=== PATIENT | female | born 1985 | race African-American/Black ===

== ENCOUNTER 2018-01-02 20:44 | Emergency (ER) | payer OTHER ==
--- NOTE | 2018-01-02 20:49 | PDOC ---
History of Present Illness - General History Source: Patient Exam Limitations: No Limitations - History of Present Illness Initial Comments: 01/02/18 22:31 The patient is a 32 year old female accompanied with her with a significant past medical history of PE, asthma, bariatric surgery, and currently who presents to the emergency department for evaluation of dysuria. The patient reports a 2 day history of worsening dysuria. Pt states the burning upon urination is getting worse. Denies any change to diet. The patient denies chest pain,, abdominal pain, back pain, headache, and shortness of breath. Denies fever, chills, nausea, vomiting, diarrhea, constipation, and hematuria. Allergies: Moxifloxacin HCl, vancomycin, levofloxacin, oxycodone. Social History: No reported alcohol, cigarette, or drug use. 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 ORIENTAL RUG REPAIRER: Dr. Lawson <Toya Nicole - Last Filed: 01/02/18 22:33> <Deloris Rojo - Last Filed: 01/03/18 05:22> - General Chief Complaint: Urinary Problem Stated Complaint: URINARY BURNING & 17 WKS Past History <Toya Nicole - Last Filed: 01/02/18 22:33> - Past Medical History Anemia: No Asthma: Yes Cancer: No Cardiac Disorders: No CVA: No COPD: No CHF: No Dementia: No Diabetes: No GI Disorders: Yes (Bariatric surgery, vomting) Disorders: No HTN: No Hypercholesterolemia: No Liver Disease: No Psychiatric Problems: Yes (Ages 9 or 10 went with mother to see a therapist.) Seizures: No Thyroid Disease: No - Surgical History Abdominal Surgery: Yes (Jun 13, 2014 - Bariatric- Gastric sleeve) Appendectomy: No Cardiac Surgery: No Cholecystectomy: Yes Gastric Stapling: Yes Lung Surgery: Yes (substernal mass, 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) Neurologic Surgery: No Orthopedic Surgery: No - Suicide/Smoking/Psychosocial Hx Smoking Status: No Smoking History: Unknown if ever smoked Have you smoked in the past 12 months: No Number of Cigarettes Smoked Daily: 0 Cigars Per Day: 0 Hx Alcohol Use: Yes (denies current use) Drug/Substance Use Hx: No Substance Use Type: None Hx Substance Use Treatment: No <Deloris Rojo - Last Filed: 01/03/18 05:22> - Past Medical History Allergies/Adverse Reactions: Allergies Allergy/AdvReac Type Severity Reaction Status Date / Time moxifloxacin HCl Allergy Mild Verified 05/20/16 13:00 [From Avelox] vancomycin Allergy Unknown Verified 05/20/16 13:00 levofloxacin [From Levaquin] Allergy Verified 05/20/16 13:00 oxycodone Allergy Verified 05/20/16 13:00 Home Medications: Ambulatory Orders Enoxaparin Sodium [Lovenox] 110 mg SQ DAILY #30 amp 09/27/16 Cyanocobalamin Vit B-12 Inj. [Vitamin B12 Injection -] 1,000 mcg IJ WEEKLY #4 vial 03/13/17 Vit Calc,Iron,Folic [ Vitamins] 1 each PO DAILY #30 tablet Darunavir Ethanolate [Prezista -] 600 mg PO BID #60 tab 10/08/17 Ritonavir [Norvir -] 100 mg PO BID #60 tab 10/08/17 Potassium Chloride [K-Dur -] 20 meq PO DAILY #3 tablet.er 10/09/17 Abacavir Sulfate [Abacavir] 2 tab PO DAILY #60 tablet 11/05/17 Tenofovir Disoproxil Fumarate [Viread] 300 mg PO DAILY #30 tablet 11/05/17 Albuterol Sulfate Inhaler - [Ventolin Hfa Inhaler -] 1 - 2 inh PO Q6H PRN #1 inhaler 11/25/17 Nitrofurantoin Monohyd/M-Cryst [Macrobid -] 100 mg PO BID #14 capsule 01/02/18 Review of Systems - Review of Systems Able to Perform ROS?: Yes Comments:: GENERAL/CONSTITUTIONAL: No fever or chills. No weakness. HEAD, EYES, EARS, NOSE AND THROAT: No change in vision. No ear pain or discharge. No sore throat. CARDIOVASCULAR: No chest pain or shortness of breath. RESPIRATORY: No cough, wheezing, or hemoptysis. GASTROINTESTINAL: No nausea, vomiting, diarrhea or constipation. GENITOURINARY: (+)dysuria. No frequency, or change in urination. MUSCULOSKELETAL: No joint or muscle swelling or pain. No neck or back pain. SKIN: No rash NEUROLOGIC: No headache, vertigo, loss of consciousness, or change in strength/ sensation. ENDOCRINE: No increased thirst. No abnormal weight change. HEMATOLOGIC/LYMPHATIC: No anemia, easy bleeding, or history of blood clots. ALLERGIC/IMMUNOLOGIC: No hives or skin allergy. <Toya Nicole - Last Filed: 01/02/18 22:33> *Physical Exam - Vital Signs Last Vital Signs Temp Pulse Resp BP Pulse Ox 98.3 F 78 16 106/54 100 01/02/18 20:45 01/02/18 20:45 01/02/18 20:45 01/02/18 20:45 01/02/18 20:45 - Physical Exam Comments: GENERAL: Awake, alert, and fully oriented, in no acute distress HEAD: No signs of trauma EYES: PERRLA, EOMI, sclera anicteric, conjunctiva clear ENT: Auricles normal inspection, hearing grossly normal, nares patent, oropharynx clear without exudates. Moist mucosa NECK: Normal ROM, supple, no lymphadenopathy, JVD, or masses LUNGS: Breath sounds equal, clear to auscultation bilaterally. No wheezes, and no crackles HEART: Regular rate and rhythm, normal S1 and S2, no murmurs, rubs or gallops ABDOMEN: (+)Minimal suprapubic tenderness. Soft, nontender, normoactive bowel sounds. No guarding, no rebound. No masses EXTREMITIES: Normal range of motion, no edema. No clubbing or cyanosis. No cords, erythema, or tenderness NEUROLOGICAL: Cranial nerves II through XII grossly intact. Normal speech, normal gait SKIN: Warm, Dry, normal turgor, no rashes or lesions noted. <Toya Nicole - Last Filed: 01/02/18 22:33> ED Treatment Course - ADDITIONAL ORDERS Additional order review: Laboratory Results 01/02/18 21:04 Urine Color Yellow Urine Appearance Clear Urine pH 6.5 Ur Specific [place] 1.020 Urine Protein Trace Urine Glucose (UA) Negative Urine Ketones Negative Urine Blood Negative Urine Nitrite Negative Urine Bilirubin Negative Urine Urobilinogen 0.2 Ur Leukocyte Esterase 2+ H Urine RBC 0-2 Urine WBC >50 Ur Epithelial Cells Few Urine Bacteria Few - Medications Given in the ED: ED Medications Discontinued Medications Generic Name Dose Route Start Last Admin Trade Name Freq PRN Reason Stop Dose Admin Nitrofurantoin Macrocrystals 100 mg 01/02/18 21:30 01/02/18 21:38 Macrodantin - PO 100 mg ONCE WON Administration <Toya Nicole - Last Filed: 01/02/18 22:33> Medical Decision Making - Medical Decision Making 01/03/18 05:21 UA shows a UTI in ; pt will be treated with macrobid and asked to follow with her PMD Lulu. <Deloris Rojo - Last Filed: 01/03/18 05:22> *DC/Admit/Observation/Transfer - Attestations Scribe Attestion: Documentation prepared by Toya Nicole, acting as medical technologist prn for Deloris Rojo MD. <Toya Nicole - Last Filed: 01/02/18 22:33> - Discharge Dispostion Decision to Admit order: No <Deloris Rojo - Last Filed: 01/03/18 05:22> Diagnosis at time of Disposition: UTI (urinary tract infection) during - Discharge Dispostion Disposition: HOME Condition at time of disposition: Stable - Prescriptions Prescriptions: Nitrofurantoin Monohyd/M-Cryst [Macrobid -] 100 mg PO BID #14 capsule - Referrals Referrals: Moon Lawson DO [Primary Care Provider] - - Patient Instructions Printed Discharge Instructions: Urinary Tract Infection - Post Discharge Activity
[2018-01-02 20:50] VITALS: BP 106/54; PULSE 78; TEMP 98.3; BMI 29.4
[2018-01-02 21:10] LABS: PH,URINE 6.5 (4.5-8); URINE APPEARANCE Clear; URINE BILIRUBIN Negative (NEGATIVE); URINE COLOR Yellow; URINE GLUCOSE (UA) Negative (NEGATIVE); URINE KETONE Negative (NEGATIVE); URINE LEUK ESTERASE 2+ (NEGATIVE); URINE NITRITE Negative (NEGATIVE); URINE PROTEIN Trace (NEGATIVE); URINE UROBILINOGEN 0.2 (0.2-1.0)
[2018-01-02] MEDS ORDERED: NITROFURANTOIN MACROCRYSTAL 50 MG CAPSULE (FP) PO SCH (21:30)
[2018-01-02] MEDS ORDERED: NITROFURANTOIN MACROCRYSTAL 50 MG CAPSULE (FP) ONE (21:36)
[2018-01-02 21:39] LABS: EPI CELLS FEW /HPF; URINE RBC 0-2 /hpf (0-3); URINE WBC >50 (0-5)
[2018-01-02 21:40] LABS: URINE BACTERIA FEW /hpf (NEGATIVE)
== END 2018-01-02 21:51 | disposition home or self-care (01) ==
LOC: FER 20:44
DX: O26.892 Other specified pregnancy related conditions, second trimester (principal); Z3A.17 17 weeks gestation of pregnancy; N39.0 Urinary tract infection, site not specified; Z98.84 Bariatric surgery status; Z86.711 Personal history of pulmonary embolism; F99 Mental disorder, not otherwise specified; J45.909 Unspecified asthma, uncomplicated
CPT/HCPCS: 81003; 81015; 87086; 87186; 99282-25

== ENCOUNTER 2018-06-06 17:11 | Inpatient (IN) | payer OTHER ==
[2018-06-06] MEDS ORDERED: TUBERCULIN PPD 5 TU/0.1ML SYRINGE (IN PATIENT USE ONLY) ID ONE (17:30)
[2018-06-06 17:46] VITALS: BMI 33.4
[2018-06-06] MEDS ORDERED: OXYTOCIN 30 UNITS in 0.9% NS 30 UNIT/500 ML INFUS.BAG IVPB SCH (18:00)
[2018-06-06] MEDS ORDERED: DEXTROSE 5%-LACTATED RINGERS 1,000 ML IV SCH (18:15)
[2018-06-06] MEDS ORDERED: OXYTOCIN 30 UNITS in 0.9% NS 30 UNIT/500 ML INFUS.BAG IVPB ONE (18:33)
--- NOTE | 2018-06-06 18:50 | HP ---
Past Medical History - Admission Chief Complaint: Here for labor induction. History of Present Illness: 32 y/o P0 female with SIUP at 39.5 weeks gestation here for scheduled IOL. Pt with medical history significant for HIV - on antivirals and viral load as of 05/25/18 undetectable. Pt also with h/o pulmonary embolism prior to , has been on Lovenox throughout , last dose yesterday at 11am. Was attempted to switch to Heparin however patient had reaction/allergy so maintained on Lovenox per Hematology/MFM. Pt also with anemia, has recieved multiple IV iron infusions, last one last week. Cervix 2cm dilated in office. History Source: Patient, Medical Record Limitations to Obtaining History: No Limitations - Past Medical History Cardiovascular: No: HTN Pulmonary: Yes: Asthma. No: COPD Gastrointestinal: No: GERD Hepatobiliary: No: Hepatitis B, Hepatitis C ...: 1 ...Para: 0 ...Term: 0 ...: 0 ...Spon : 0 ...Induced : 0 ...Multiple Gestation: 0 ...EDC by [facility]: 06/08/18 Heme/Onc: Yes: Anemia Infectious Disease: No: HIV Psych: No: Anxiety, Bipolar, Depression Rheumatology: No: Lupus - Past Surgical History Hx Myomectomy: No Hx Transabdominal Cerclage: No Additional Surgical History: LEEP, Abdominoplasty - Smoking History Smoking history: Never smoked Have you smoked in the past 12 months: No Aproximately how many cigarettes per day: 0 - Alcohol/Substance Use Hx Alcohol Use: No - Social History Usual Living Arrangement: Yes: With Significant Other ADL: Independent History of Recent Travel: No Home Medications - Allergies Allergies/Adverse Reactions: Allergies Allergy/AdvReac Type Severity Reaction Status Date / Time ciprofloxacin [From Cipro] Allergy Intermediate Verified 06/06/18 18:08 heparin Allergy Mild Itching Verified 06/06/18 18:26 moxifloxacin HCl Allergy Mild Verified 06/06/18 18:08 [From Avelox] vancomycin Allergy Unknown Verified 06/06/18 18:08 levofloxacin [From Levaquin] Allergy Verified 06/06/18 18:08 raisin Allergy Intermediate Itching Uncoded 06/06/18 18:08 - Home Medications Home Medications: Ambulatory Orders Enoxaparin Sodium [Lovenox] 110 mg SQ DAILY #30 amp 09/27/16 Vit Calc,Iron,Folic [ Vitamins] 1 each PO DAILY #30 tablet Darunavir Ethanolate [Prezista -] 600 mg PO BID #60 tab 01/12/18 Ritonavir [Norvir -] 100 mg PO BID #60 tab 01/12/18 Tenofovir Disoproxil Fumarate [Viread] 300 mg PO DAILY #30 tablet 01/12/18 Albuterol 0.083% Nebulizer Opal [Ventolin 0.083% Nebulizer Soln -] 1 amp NEB PRN PRN 06/06/18 Dolutegravir Sodium [Tivicay] 50 mg PO BID 06/06/18 Esomeprazole Magnesium [Nexium 24Hr] 20 mg PO DAILY 06/06/18 Ferrous Sulfate [Feosol] 325 mg PO TID 06/06/18 Review of Systems - Review of Systems Constitutional: reports: No Symptoms Eyes: reports: No Symptoms HENT: reports: No Symptoms Neck: reports: No Symptoms Cardiovascular: reports: No Symptoms Respiratory: reports: No Symptoms Gastrointestinal: reports: No Symptoms Genitourinary: reports: No Symptoms Breasts: reports: No Symptoms Reported Musculoskeletal: reports: No Symptoms Integumentary: reports: No Symptoms Neurological: reports: No Symptoms Endocrine: reports: No Symptoms Hematology/Lymphatic: reports: No Symptoms Psychiatric: reports: No Symptoms Physical Exam - Maternity Vital Signs: Vital Signs Temperature 97.9 F 06/06/18 17:37 Pulse Rate 101 H 06/06/18 17:37 Respiratory Rate 20 06/06/18 17:37 Blood Pressure 109/79 06/06/18 17:37 O2 Sat by Pulse Oximetry (%) Constitutional: Yes: Well Nourished, No Distress, Calm Eyes: Yes: Conjunctiva Clear, EOM Intact HENT: Yes: Normocephalic Neck: Yes: Supple, Trachea Midline Cardiovascular: Yes: Regular Rate and Rhythm Lungs: Clear to auscultation Breast(s): Yes: WNL - Abdominal Exam/OB Fundal Height: 39 Number of Fetuses: Single Presentation: Vertex Contractions: Yes Regularity: Irregular Intensity: Mild Heart Rate (range): 155 Category: I Accelerations: Uniform Decelerations: None - Vaginal Exam/OB Vaginal Bleediing: No Dilatation (cm): 3 Effacement (%): 50 Presentation: Vertex/Position Station: -2 - Physical Exam Psychiatric: Yes: Alert, Oriented Hemorrhage Risk Assessment - Risk Factors Medium Risk Factors: Yes: None High Risk Factors: Yes: None Risk Score: 1 Risk Level: Medium Risk Problem List - Problems (1) History of pulmonary embolism Code(s): Z86.711 - PERSONAL HISTORY OF PULMONARY EMBOLISM (2) Asthma, mild intermittent Code(s): J45.20 - MILD INTERMITTENT ASTHMA, UNCOMPLICATED (3) HIV (human immunodeficiency virus) risk factors complicating Code(s): O09.899 - SUPERVISION OF OTHER HIGH RISK PREGNANCIES, UNSP TRIMESTER Qualifiers: Trimester: third trimester Qualified Code(s): O09.893 - Supervision of other high risk pregnancies, third trimester (4) Anemia affecting Code(s): O99.019 - ANEMIA COMPLICATING , UNSPECIFIED TRIMESTER Assessment/Plan Plan for induction of labor Lovenox held >24 hours HIV positive, viral load undetectable, will continue oral home medications, AZT not indicated per ACOG recommendations - will alert nursery to have preparations for baby Pitocin started GBS negative
[2018-06-06] MEDS ORDERED: ALBUTEROL SO4 0.083% IH SOL 2.5 MG/3 ML VIAL.NEB. NEB PRN (18:59)
[2018-06-06] MEDS ORDERED: ELECTROLYTE-148 SOLN 1,000 ML IV SCH (19:00)
[2018-06-06] MEDS ORDERED: PROMETHAZINE HCL 25 MG/1 ML VIAL IVPUSH ONE (19:00)
[2018-06-06] MEDS ORDERED: BUTORPHANOL TARTRATE 1 MG/ML VIAL IVPB ONE (19:00)
[2018-06-06 19:20] LABS: BASO % 0.3 % (0-2.0); EOS % 0.6 % (0-4.5); HEMATOCRIT 28.7 % (32.4-45.2); HEMOGLOBIN 9.7 GM/dL (10.7-15.3); LYMPH % 21.5 % (8-40); MCH 27.2 pg (25.7-33.7); MEAN CELL VOLUME 80.1 fl (80-96); MONO % 7.9 % (3.8-10.2); NEUT % 69.7 % (42.8-82.8); PLATELET COUNT 180 K/MM3 (134-434); RBC 3.58 M/mm3 (3.60-5.2); RDW 21.1 % (11.6-15.6); WHITE BLOOD COUNT 6.5 K/mm3 (4.0-10.0)
[2018-06-06 19:35] LABS: ANION GAP 10 MMOL/L (8-16); BLOOD UREA NITROGEN 9 mg/dL (7-18); CALCIUM 7.5 mg/dL (8.5-10.1); CHLORIDE 109 mmol/L (98-107); CO2 20 mmol/L (21-32); CREATININE 0.7 mg/dL (0.55-1.3); GLUCOSE,RANDOM 89 mg/dL (74-106); INR 0.92 (0.83-1.09); POTASSIUM 3.5 mmol/L (3.5-5.1); PROTHROMBIN TIME (PATIENT) 10.8 SEC (9.7-13.0); SODIUM 139 mmol/L (136-145)
[2018-06-06 19:38] LABS: ACTIVATED PTT 27.8 SECONDS (25.2-36.5)
[2018-06-06] MEDS ORDERED: FENTANYL/BUPIVACAINE/NS/PF - PCEA - 50 ML DISP.SYRIN EP ONE (21:17)
[2018-06-06] MEDS ORDERED: NALOXONE HCL 0.4 MG/ML VIAL IVPUSH PRN (21:18)
[2018-06-06] MEDS ORDERED: LIDO 2%/EPI 1:200000 PRESRVFRE (20 ML SDVIAL) ONE (21:28)
[2018-06-06] MEDS ORDERED: FENTANYL/BUPIVACAINE/NS/PF - PCEA - 50 ML DISP.SYRIN EP SCH (21:30)
--- NOTE | 2018-06-06 22:08 | PN ---
Ante-Partal Exam - Subjective Subjective: Pt s/p epidural, now is comfortable. Vital Signs: Vital Signs Temperature 97.9 F 06/06/18 17:37 Pulse Rate 69 06/06/18 21:00 Respiratory Rate 20 06/06/18 21:00 Blood Pressure 124/79 06/06/18 21:00 O2 Sat by Pulse Oximetry (%) Bleeding: Yes Bleeding Description: Mild Headache: No Visual changes: No Right upper quadrant pain: No - Contractions Contractions: Yes Regularity: Regular Intensity: Strong - Exam during Labor Heart Rate: 150 Variability: Moderate Category: I Monitor Accelerations: Present Monitor Decelerations: None Exam: Vaginal Dilatation (cm): 6 Effacement (%): 70 Amniotic Membrane Status: Ruptured (AROM for clear fluid at this exam) Amniotic Fluid: Clear Presentation: Vertex Station: -1 - Assessment/Plan Assessment/Plan: 32 y/o with SIUP at 39 weeks, IOL s/p AROM and epidural continue pitocin anticipate
[2018-06-06] MEDS: DOLUTEGRAVIR SODIUM 50 MG TABLET (NON-FORMULARY) PO SCH (22:14)
[2018-06-06] MEDS: DARUNAVIR ETHANOLATE 600 MG TAB PO SCH (22:14)
[2018-06-06] MEDS: RITONAVIR 100 MG TABLET PO SCH (22:15)
[2018-06-07] MEDS ORDERED: FENTANYL/BUPIVACAINE/NS/PF - PCEA - 50 ML DISP.SYRIN EP ONE (01:03)
[2018-06-07] MEDS ORDERED: LIDOCAINE HCL 1% PRESERVATIVE FREE - 30ML VIAL ONE (01:58)
[2018-06-07] MEDS ORDERED: OXYTOCIN 20 UNITS in 0.9% NS 20 UNIT/1,000 ML INFUS.BAG IV ONE (01:58)
--- NOTE | 2018-06-07 03:02 | PN ---
Delivery - Delivery Vaginal Delivery: No Problems Type of Anesthesia: Epidural Episiotomy/Laceration: 2nd degree EBL (cc): 250 Delivery, Single - Stages of Labor Date of Delivery: 06/07/18 Time of Delivery: 02:33 Date Placenta Delivered: 06/07/18 Time Placenta Delivered: :45 Placenta: Yes: Spontaneous - Condition of Gender: Male Position: Left, OA - 1 Minute Total Score: 9 5 Minutes Total Score: 9 - [place] Feeding Plan Initial Plan: Elected not to breastfeed exclusively throughout hospitalization Remarks - Remarks Remarks: Uncomplicated of baby boy from ROSE position across 2nd degree laceration Anterior shoulder (right) delivered with ease along with remainder of 3vc noted, clamped and cut baby recieved apgars 9/9 placenta delivered spontaneously and in tact 2nd degree laceration repaired wtih 2-0 vicryl and chromic sponge and needle count correct mom stable baby to well baby nursery
[2018-06-07] MEDS ORDERED: BISACODYL 10 MG SUPP.RECT RC PRN (03:06)
[2018-06-07] MEDS ORDERED: WITCH HAZEL 50% (TUCKS) 40 PAD/JAR PAD TP PRN (03:06)
[2018-06-07] MEDS ORDERED: BENZOCAINE 28 GM HEMORRHOIDAL OINTMENT TP PRN (03:06)
[2018-06-07] MEDS ORDERED: BENZOCAINE 20% 57 GM BOTTLE TP PRN (03:06)
[2018-06-07] MEDS ORDERED: IBUPROFEN 600 MG TABLET (FP) PO PRN (03:06)
[2018-06-07] MEDS ORDERED: OXYTOCIN 20 UNITS in 0.9% NS 20 UNIT/1,000 ML INFUS.BAG IV SCH (03:15)
[2018-06-07] MEDS: ACETAMINOPHEN 325 MG TABLET (FP) PO PRN ×3 (05:09→21:16)
[2018-06-07] MEDS: oxyCODONE HCL 5 MG TABLET PO PRN ×3 (07:29→21:18)
[2018-06-07] MEDS: FERROUS SO4 325 MG TABLET (FP) PO SCH ×4 (07:29→21:18)
[2018-06-07] MEDS: ENOXAPARIN NA (PORCINE) 40 MG/0.4 ML DISP.SYRIN SQ SCH (09:20)
[2018-06-07] MEDS: PRENATAL VITAMINS W/ FOLIC ACID TABLET (FP) PO SCH (09:20)
[2018-06-07] MEDS: RITONAVIR 100 MG TABLET PO SCH ×2 (09:21→21:19)
[2018-06-07] MEDS: TENOFOVIR DISOPROXIL FUMARATE 300 MG TABLET PO SCH (10:38)
[2018-06-07] MEDS: DOLUTEGRAVIR SODIUM 50 MG TABLET (NON-FORMULARY) PO SCH ×2 (10:39→21:19)
[2018-06-07] MEDS: DARUNAVIR ETHANOLATE 600 MG TAB PO SCH ×2 (10:39→21:19)
[2018-06-08] MEDS: ACETAMINOPHEN 325 MG TABLET (FP) PO PRN ×4 (01:58→23:51)
[2018-06-08] MEDS: oxyCODONE HCL 5 MG TABLET PO PRN ×3 (01:58→23:52)
[2018-06-08] MEDS: FERROUS SO4 325 MG TABLET (FP) PO SCH ×3 (06:36→22:30)
[2018-06-08 07:35] LABS: BASO % 0.2 % (0-2.0); HEMATOCRIT 26.3 % (32.4-45.2); HEMOGLOBIN 8.4 GM/dL (10.7-15.3); LYMPH % 19.6 % (8-40); MCH 26.1 pg (25.7-33.7); MCHC 31.9 g/dl (32.0-36.0); MEAN CELL VOLUME 81.9 fl (80-96); MEAN PLT VOLUME 8.4 fl (7.5-11.1); MONO % 6.6 % (3.8-10.2); NEUT % 72.6 % (42.8-82.8); PLATELET COUNT 131 K/MM3 (134-434); RBC 3.21 M/mm3 (3.60-5.2); WHITE BLOOD COUNT 9.1 K/mm3 (4.0-10.0)
[2018-06-08] MEDS: ENOXAPARIN NA (PORCINE) 40 MG/0.4 ML DISP.SYRIN SQ SCH (09:47)
[2018-06-08] MEDS: PRENATAL VITAMINS W/ FOLIC ACID TABLET (FP) PO SCH (09:48)
[2018-06-08] MEDS: RITONAVIR 100 MG TABLET PO SCH ×2 (09:48→22:30)
[2018-06-08] MEDS: DARUNAVIR ETHANOLATE 600 MG TAB PO SCH ×2 (09:49→22:30)
[2018-06-08] MEDS: DOLUTEGRAVIR SODIUM 50 MG TABLET (NON-FORMULARY) PO SCH ×2 (09:50→22:30)
[2018-06-08] MEDS: TENOFOVIR DISOPROXIL FUMARATE 300 MG TABLET PO SCH (09:51)
[2018-06-08] MEDS ORDERED: SENNOSIDES/DOCUSATE COMBO (SENNA PLUS) TABLET (UD) PO PRN (22:00)
[2018-06-09] MEDS: FERROUS SO4 325 MG TABLET (FP) PO SCH (06:45)
[2018-06-09 08:38] VITALS: BP 122/80; PULSE 89; TEMP 98.8
[2018-06-09] MEDS: PRENATAL VITAMINS W/ FOLIC ACID TABLET (FP) PO SCH (09:02)
[2018-06-09] MEDS: ENOXAPARIN NA (PORCINE) 40 MG/0.4 ML DISP.SYRIN SQ SCH (09:02)
[2018-06-09] MEDS: RITONAVIR 100 MG TABLET PO SCH (09:03)
[2018-06-09] MEDS: DARUNAVIR ETHANOLATE 600 MG TAB PO SCH (09:06)
[2018-06-09] MEDS: DOLUTEGRAVIR SODIUM 50 MG TABLET (NON-FORMULARY) PO SCH (09:09)
[2018-06-09] MEDS: TENOFOVIR DISOPROXIL FUMARATE 300 MG TABLET PO SCH (09:10)
--- NOTE | 2018-06-09 09:19 | DS ---
Physical Exam-REGISTERED NURSE NURSERY Vital Signs: Vital Signs Temperature 98.8 F 06/09/18 07:50 Pulse Rate 89 06/09/18 07:50 Respiratory Rate 20 06/09/18 07:50 Blood Pressure 122/80 06/09/18 07:50 O2 Sat by Pulse Oximetry (%) 100 06/07/18 03:45 Labs: CBC, BMP 06/08/18 06:15 06/06/18 19:00 Delivery - Delivery Vaginal Delivery: No Problems Type of Anesthesia: Epidural Episiotomy/Laceration: 2nd degree EBL (cc): 250 Delivery, Single - Stages of Labor Date 1st Stage Initiatied: 06/07/18 Time 1st Stage Initiated: 21:45 Date 2nd Stage Initiated: 06/07/18 Time 2nd Stage Initiated: 02:15 Date of Delivery: 06/07/18 Time of Delivery: 02:33 Time Placenta Delivered: 02:45 Placenta: Yes: Spontaneous - 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 of 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 Present: No Infant Gender: Male Weight: 6 lb 13 oz Position: Left, OA Total Hours ROM (Hrs/Mins): 4HOURS/45MIN - 1 Minute Total Score: 9 5 Minutes Total Score: 9 - Feeding Plan Initial Plan: Elected not to breastfeed exclusively throughout hospitalization Discharge Summary Reason For Visit: INDUCTION OF LABOR Current Active Problems Anemia affecting (Acute) HIV (human immunodeficiency virus) risk factors complicating (Acute) Condition: Good - Instructions Diet, Activity, Other Instructions: Physical activity Resume your normal everyday activity as tolerated no heavy lifting or exercise until seen by your surgeon. You may walk unlimited lin of and climb stairs. You may resume driving the car when you feel safe and comfortable behind the wheel. No sexual activity as instructed. Wound care If you have a bandage, leave it on, and keep dry for 48-72 hours. After that time discard the outer bandage. If they are tapes on the skin under the out of bandage leave them in place. They will peel off in the next 7 to 10 days. Do Not Peel them off. You may shower the day after surgery. If there are tapes present on the skin, you may shower over them. Diet There are no dietary restrictions. Eat healthy, high-fiber foods. Drink 6 to 8 glasses of liquid each day. This will assist in keeping your bowels are regular. Pain management You may take Tylenol or acetaminophen or Ibuprofen (for example, Motrin, Advil etc.) from my pain prescription medication is ordered should be taken as prescribed for moderate to severe pain. Call MD for any of the following: Severe pain not relieved by medication Fever of 101 or higher Excessive bleeding or drainage on dressing Inability to urinate Disposition: HOME - Home Medications Comprehensive Discharge Medication List: Ambulatory Orders Enoxaparin Sodium [Lovenox] 110 mg SQ DAILY #30 amp 09/27/16 Vit Calc,Iron,Folic [ Vitamins] 1 each PO DAILY #30 tablet Darunavir Ethanolate [Prezista -] 600 mg PO BID #60 tab 01/12/18 Ritonavir [Norvir -] 100 mg PO BID #60 tab 01/12/18 Tenofovir Disoproxil Fumarate [Viread] 300 mg PO DAILY #30 tablet 01/12/18 Albuterol 0.083% Nebulizer Opal [Ventolin 0.083% Nebulizer Soln -] 1 amp NEB PRN PRN 06/06/18 Dolutegravir Sodium [Tivicay] 50 mg PO BID 06/06/18 Esomeprazole Magnesium [Nexium 24Hr] 20 mg PO DAILY 06/06/18 Ferrous Sulfate [Feosol] 325 mg PO TID 06/06/18
--- NOTE | 2018-06-09 09:19 | PN ---
Post Progress Note Type of Delivery: Vital Signs: Vital Signs Temperature 98.8 F 06/09/18 07:50 Pulse Rate 89 06/09/18 07:50 Respiratory Rate 20 06/09/18 07:50 Blood Pressure 122/80 06/09/18 07:50 O2 Sat by Pulse Oximetry (%) 100 06/07/18 03:45 - Labs Labs: CBC WBC 9.1 K/mm3 (4.0-10.0) 06/08/18 06:15 RBC 3.21 M/mm3 (3.60-5.2) L 06/08/18 06:15 Hgb 8.4 GM/dL (10.7-15.3) L 06/08/18 06:15 Hct 26.3 % (32.4-45.2) L 06/08/18 06:15 MCV 81.9 fl (80-96) 06/08/18 06:15 MCH 26.1 pg (25.7-33.7) 06/08/18 06:15 MCHC 31.9 g/dl (32.0-36.0) L 06/08/18 06:15 RDW 23.0 % (11.6-15.6) H 06/08/18 06:15 Plt Count 131 K/MM3 (134-434) L D 06/08/18 06:15 MPV 8.4 fl (7.5-11.1) 06/08/18 06:15 Absolute Neuts (auto) 6.6 K/mm3 (1.5-8.0) 06/08/18 06:15 Neutrophils % 72.6 % (42.8-82.8) 06/08/18 06:15 Lymphocytes % 19.6 % (8-40) 06/08/18 06:15 Monocytes % 6.6 % (3.8-10.2) 06/08/18 06:15 Eosinophils % 1.0 % (0-4.5) 06/08/18 06:15 Basophils % 0.2 % (0-2.0) 06/08/18 06:15 Nucleated RBC % 0 % (0-0) 06/08/18 06:15 Problem List - Problems (1) History of pulmonary embolism Code(s): Z86.711 - PERSONAL HISTORY OF PULMONARY EMBOLISM (2) Asthma, mild intermittent Code(s): J45.20 - MILD INTERMITTENT ASTHMA, UNCOMPLICATED (3) HIV (human immunodeficiency virus) risk factors complicating Code(s): O09.899 - SUPERVISION OF OTHER HIGH RISK PREGNANCIES, UNSP TRIMESTER Qualifiers: Trimester: third trimester Qualified Code(s): O09.893 - Supervision of other high risk pregnancies, third trimester (4) Anemia affecting Code(s): O99.019 - ANEMIA COMPLICATING , UNSPECIFIED TRIMESTER
== END 2018-06-09 12:00 | disposition home or self-care (01) | DRG 560 ==
LOC: JLDR 17:11 → J3W 06-07 04:46
PROVIDERS: ADMIT Obstetrics & Gynecology; ATTEND Obstetrics & Gynecology
PROC: 10E0XZZ Delivery of Products of Conception, External Approach (ICD-10-PCS; principal; 2018-06-07)
PROC: 0KQM0ZZ Repair Perineum Muscle, Open Approach (ICD-10-PCS; 2018-06-07)
PROC: 0W8NXZZ Division of Female Perineum, External Approach (ICD-10-PCS; 2018-06-07)
PROC: 3E0334Z Introduction of Serum, Toxoid and Vaccine into Peripheral Vein, Percutaneous Approach (ICD-10-PCS; 2018-06-07)
DX: O70.1 Second degree perineal laceration during delivery (principal); O99.013 Anemia complicating pregnancy, third trimester; O98.713 Human immunodeficiency virus [HIV] disease complicating pregnancy, third trimester; Z21 Asymptomatic human immunodeficiency virus [HIV] infection status; O26.893 Other specified pregnancy related conditions, third trimester; Z29.13 Encounter for prophylactic Rho(D) immune globulin; Z3A.39 39 weeks gestation of pregnancy; J45.20 Mild intermittent asthma, uncomplicated; Z37.0 Single live birth
CPT/HCPCS: 36415; 59409; 80048; 85025; 85461; 85610; 85730; 86593; 86850; 86870; 86900; 86901; 86902; 86999

== ENCOUNTER 2019-04-24 20:07 | Emergency (ER) | payer OTHER ==
[2019-04-24 20:22] VITALS: BP 119/84; PULSE 90; TEMP 98.3; BMI 35.6
[2019-04-24] MEDS ORDERED: AZITHROMYCIN 500 MG TABLET PO ONE (20:31)
[2019-04-24] MEDS ORDERED: AZITHROMYCIN 500 MG TABLET ONE (20:33)
--- NOTE | 2019-04-24 20:36 | PDOC ---
Documentation entered by Olaf Hartley SCRIBE, acting as scribe for Hardeep Serrato MD. Hardeep Serrato MD: This documentation has been prepared by the Naeem rahman Aiswarya, SCRIBE, under my direction and personally reviewed by me in its entirety. I confirm that the documentation accurately reflects all work, treatment, procedures, and medical decision making performed by me. History of Present Illness - General Chief Complaint: Allergic Reaction Stated Complaint: ITCHING Time Seen by Provider: 04/24/19 20:22 History Source: Patient Exam Limitations: No Limitations - History of Present Illness Initial Comments: 04/24/19 20:29 Assessment and plan: This is a 33-year-old female who comes in complaining of itching post being started on Augmentin for a right otitis media. Patient is also tearful and complaining of pain in her right ear. On my exam patient does have an inflamed tympanic membrane of her right ear consistent with a right otitis media. Patient told to stop the Augmentin and take Benadryl Claritin or Alejandra for the itching Patient started on azithromycin Patient also given Percocet for the pain in the ear. Will continue 2 days of Percocet for her until the antibiotic kicks in Patient discharged home Past History - Past Medical History Allergies/Adverse Reactions: Allergies Allergy/AdvReac Type Severity Reaction Status Date / Time ciprofloxacin [From Cipro] Allergy Severe Verified 06/07/18 21:25 moxifloxacin HCl Allergy Severe Verified 06/07/18 21:25 [From Avelox] levofloxacin [From Levaquin] Allergy Intermediate Hives Verified 06/07/18 21:25 amoxicillin Allergy Mild Itching Verified 04/24/19 20:23 heparin Allergy Mild Itching Verified 06/06/18 18:26 vancomycin Allergy Unknown Swelling Verified 06/07/18 21:25 raisin Allergy Intermediate Itching Uncoded 06/06/18 18:08 Home Medications: Ambulatory Orders Albuterol 0.083% Nebulizer Opal [Ventolin 0.083% Nebulizer Soln -] 1 amp NEB PRN PRN 06/06/18 Etonogestrel [Nexplanon] 68 mg SQ ASDIR 09/18/18 Ritonavir [Norvir -] 100 mg PO BID #60 tab 09/18/18 Tenofovir Disoproxil Fumarate [Viread] 300 mg PO DAILY #30 tablet 09/18/18 Albuterol Sulfate Inhaler - [Ventolin HFA Inhaler -] 1 - 2 inh PO Q4H PRN #1 inhaler 12/29/18 Beclomethasone Dipropionate [Qvar] 1 puff IH BID #1 aer.w.adap 12/29/18 Guaifenesin Dm [Robitussin Dm -] 10 ml PO Q4H PRN #240 ml 12/29/18 Loratadine [Claritin -] 10 mg PO DAILY PRN #30 tablet 12/29/18 Mometasone Furoate 1 spray NS BID #1 spray.pump 12/29/18 Darunavir/Cob/Emtri/Tenof Alaf [Symtuza [id number] mg Tab] 1 each PO DAILY # 30 tablet 01/05/19 Dolutegravir Sodium [Tivicay] 50 mg PO BID #60 tablet 01/05/19 Omeprazole 20 mg PO DAILY PRN #30 capsule. 02/02/19 Azithromycin 250 mg PO DAILY #4 tablet 04/24/19 Azithromycin 250 mg PO DAILY #4 tablet 04/24/19 Oxycodone HCl/Acetaminophen [Percocet 5-325 mg Tablet] 1 tab PO Q4H #12 tablet MDD 6 04/24/19 Oxycodone HCl/Acetaminophen [Percocet 5-325 mg Tablet] 1 tab PO Q4H #6 tablet MDD 6 04/24/19 Anemia: No Asthma: No Cancer: No Cardiac Disorders: No CVA: No COPD: No CHF: No Dementia: No Diabetes: No GI Disorders: Yes (Bariatric surgery, vomting) Disorders: No HTN: No Hypercholesterolemia: No Liver Disease: No Psychiatric Problems: Yes (Ages 9 or 10 went with mother to see a therapist.) Seizures: No Thyroid Disease: No - Surgical History Abdominal Surgery: Yes (Jun 13, 2014 - Bariatric- Gastric sleeve) Appendectomy: No Cardiac Surgery: No Cholecystectomy: Yes Gastric Stapling: Yes Lung Surgery: Yes (substernal mass, 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) Neurologic Surgery: No Orthopedic Surgery: No - Psycho Social/Smoking Cessation Hx Smoking Status: No Smoking History: Never smoked Have you smoked in the past 12 months: No Number of Cigarettes Smoked Daily: 0 Cigars Per Day: 0 Hx Alcohol Use: No Drug/Substance Use Hx: No Substance Use Type: None Hx Substance Use Treatment: No *Physical Exam - Vital Signs Last Vital Signs Temp Pulse Resp BP Pulse Ox 98.3 F 90 18 119/84 99 04/24/19 20:10 04/24/19 20:10 04/24/19 20:10 04/24/19 20:10 04/24/19 20:10 Discharge - Discharge Information Problems reviewed: Yes Clinical Impression/Diagnosis: Right otitis media Qualifiers: Otitis media type: unspecified Qualified Code(s): H66.91 - Otitis media, unspecified, right ear Allergic reaction caused by a drug Qualifiers: Encounter type: initial encounter Qualified Code(s): T78.40XA - Allergy, unspecified, initial encounter Condition: Good Disposition: HOME - Additional Discharge Information Prescriptions: Azithromycin 250 mg PO DAILY #4 tablet Azithromycin 250 mg PO DAILY #4 tablet Oxycodone HCl/Acetaminophen [Percocet 5-325 mg Tablet] 1 tab PO Q4H #12 tablet MDD 6 Oxycodone HCl/Acetaminophen [Percocet 5-325 mg Tablet] 1 tab PO Q4H #6 tablet MDD 6 - Follow up/Referral Referrals: Moon Lawson DO [Primary Care Provider] - - Patient Discharge Instructions Additional Instructions: For the pain take Percocet 1 tablet as often as every 4 hours as needed I was able to send a prescription to [facility] on [facility] for a total of 6 tablets that should get you through tomorrow otherwise you will need to go to your other pharmacy and get additional tablets if you still need them. For the infection and stop the Augmentin and take azithromycin 1 tablet a day for the next 4 days. There is a prescription for azithromycin at both pharmacy so only fill one. For the itching you can take Benadryl or purchase some [id number] Claritin or Alejandra and take as directed. Return to the emergency department immediately with ANY new, persistent or worsening symptoms. Continue any medications as previously prescribed by your physician. You should follow up with your primary doctor as soon as possible regarding today's emergency department visit. . Please make sure your doctor reviews the results of your emergency evaluation. Thank you for coming to the Emergency Department today for your care. It was a pleasure to see you today. Please note that your evaluation is INCOMPLETE until you follow-up with your doctor. - Post Discharge Activity
== END 2019-04-24 20:50 | disposition home or self-care (01) ==
LOC: FER 20:07
DX: L29.8 Other pruritus (principal); T36.0X5A Adverse effect of penicillins, initial encounter; T36.1X5A Adverse effect of cephalosporins and other beta-lactam antibiotics, initial encounter; Y92.038 Other place in apartment as the place of occurrence of the external cause; H66.91 Otitis media, unspecified, right ear; Z88.0 Allergy status to penicillin; Z88.1 Allergy status to other antibiotic agents; Z88.2 Allergy status to sulfonamides; Z91.018 Allergy to other foods; Z86.59 Personal history of other mental and behavioral disorders; Z98.84 Bariatric surgery status; Z90.49 Acquired absence of other specified parts of digestive tract
CPT/HCPCS: 99282-25

== ENCOUNTER 2019-05-03 12:12 | Inpatient (IN) | payer OTHER ==
[~2019-05-03 12:12] MED LIST: DOXYCYCLINE MONOHYDRATE 25 MG/5 ML SUSPENSION PO SCH
--- NOTE | 2019-05-03 12:35 | PDOC ---
History of Present Illness - General Chief Complaint: Syncope/Near Syncope Stated Complaint: Syncope/Near Syncope Time Seen by Provider: 05/03/19 12:35 History Source: Patient Exam Limitations: No Limitations - History of Present Illness Initial Comments: Pt is a 33 yo F, with PMH of HIV (prior IVDU), asthma (not compliant with controller meds), GERD, prior PE (not compliant with AC), and anemia (required Fe and blood transfusions), who is presenting with complaints of worsening ear pain, and syncopal episode yesterday. Pt was seen at a [facility] 04/24, and was treated for R OM with augmentin. Pt developed itching, and was switched to zithromax (pt took 5 days) at [facility]. Pt states R ear pain has worsened and is now affecting L ear. 2 days ago she developed pain behind R ear, nausea/ vomiting, and loose stools, and "passed out" while walking to the bathroom (hit her head, unknown downtime). Pt had incontinence during this episode. Pt with Tmax this morning (101 oral), last took Tylenol at 7 am. Pt denies any headache , neck stiffness, vision changes, syncope, chest pain, palpitations, SOB, abdominal pain, urinary symptoms, constipation, or leg swelling. Allergies: NKDA PCP: Kori Enamorado ([facility]) GI: Dr. Prater (endoscopy scheduled next week). Social: Pt denies any current cigarette, alcohol, or drug use. Prior IVDU. Pt denies any recent travel or sick contacts. Surgical: no relevant history. Family: no relevant history. 05/03/19 14:50 05/03/19 15:11 Past History - Travel Traveled outside of the country in the last 30 days: No Close contact w/someone who was outside of country & ill: No - Past Medical History Allergies/Adverse Reactions: Allergies Allergy/AdvReac Type Severity Reaction Status Date / Time ciprofloxacin [From Cipro] Allergy Severe Verified 05/03/19 12:20 moxifloxacin HCl Allergy Severe Verified 05/03/19 12:20 [From Avelox] levofloxacin [From Levaquin] Allergy Intermediate Hives Verified 05/03/19 12:20 amoxicillin Allergy Mild Itching Verified 05/03/19 12:20 heparin Allergy Mild Itching Verified 05/03/19 12:20 vancomycin Allergy Unknown Swelling Verified 05/03/19 12:20 raisin Allergy Intermediate Itching Uncoded 05/03/19 12:20 Home Medications: Ambulatory Orders Albuterol 0.083% Nebulizer Opal [Ventolin 0.083% Nebulizer Soln -] 1 amp NEB PRN PRN 06/06/18 Etonogestrel [Nexplanon] 68 mg SQ ASDIR 09/18/18 Albuterol Sulfate Inhaler - [Ventolin HFA Inhaler -] 1 - 2 inh PO Q4H PRN #1 inhaler 12/29/18 Beclomethasone Dipropionate [Qvar] 1 puff IH BID #1 aer.w.adap 12/29/18 Loratadine [Claritin -] 10 mg PO DAILY PRN #30 tablet 12/29/18 Mometasone Furoate 1 spray NS BID #1 spray.pump 12/29/18 Darunavir/Cob/Emtri/Tenof Alaf [Symtuza [id number] mg Tab] 1 each PO DAILY # 30 tablet 01/05/19 Dolutegravir Sodium [Tivicay] 50 mg PO BID #60 tablet 01/05/19 Oxycodone HCl/Acetaminophen [Percocet 5-325 mg Tablet] 1 tab PO Q4H #12 tablet MDD 6 04/24/19 Oxycodone HCl/Acetaminophen [Percocet 5-325 mg Tablet] 1 tab PO Q4H #6 tablet MDD 6 04/24/19 Anemia: No Asthma: No Cancer: No Cardiac Disorders: No CVA: No COPD: No CHF: No Dementia: No Diabetes: No GI Disorders: Yes (Bariatric surgery, vomting) Disorders: No HTN: No Hypercholesterolemia: No Liver Disease: No Psychiatric Problems: Yes (Ages 9 or 10 went with mother to see a therapist.) Seizures: No Thyroid Disease: No - Surgical History Abdominal Surgery: Yes (Jun 13, 2014 - Bariatric- Gastric sleeve) Appendectomy: No Cardiac Surgery: No Cholecystectomy: Yes Gastric Stapling: Yes Lung Surgery: Yes (substernal mass, 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) Neurologic Surgery: No Orthopedic Surgery: No - Psycho Social/Smoking Cessation Hx Smoking Status: No Smoking History: Never smoked Have you smoked in the past 12 months: No Number of Cigarettes Smoked Daily: 0 Cigars Per Day: 0 Hx Alcohol Use: No Drug/Substance Use Hx: No Substance Use Type: None Hx Substance Use Treatment: No Cardiac Specific PMH - Complaint Specific PMHX Abdominal Aortic Aneurysm: No Angina: No Cardiac Arrhythmia: No Cardiac Stent: No GERD: Yes Myocardial Infarction: No Pacemaker: No Pulmonary Embolus: Yes Valvular Heart Disease: No Peripheral Vascular Disease: No Review of Systems - Review of Systems Able to Perform ROS?: Yes Is the patient limited Greek proficient: No Constitutional: Yes: Chills, Fever, Loss of Appetite, Malaise, Weakness, Weight Stable. No: Diaphoresis, Night Sweats HEENTM: Yes: Ear Pain, Nose Congestion. No: Eye Pain, Blurred Vision, Recent change in vision, Ear Discharge, Tinnitus, Hearing Loss, Throat Pain, Throat Swelling, Mouth Pain, Difficulty Swallowing Respiratory: Yes: Cough, Productive cough. No: Orthopnea, Shortness of Breath, Wheezing, Hemoptysis Cardiac (ROS): Yes: Lightheadedness, Syncope. No: Chest Pain, Edema, Irregular Heart Rate, Palpitations, Chest Tightness ABD/GI: Yes: Diarrhea, Nausea, Poor Appetite, Poor Fluid Intake, Vomiting. No: Blood Streaked Bowels, Constipated, Abdominal cramping : No: Burning, Dysuria, Frequency, Flank Pain, Pain, Urgency Musculoskeletal: No: Back Pain, Muscle Pain, Muscle Weakness, Neck Pain, Joint Stiffness Integumentary: No: Change in Color, Rash Neurological: Yes: See HPI (syncope vs seizure). No: Headache, Numbness, Weakness, Unsteady Gait, Ataxia, Dizziness Psychiatric: No: Sleep Pattern Change, Change in Appetite Endocrine: No: Increased Urine, Change in Weight Hematologic/Lymphatic: Yes: Blood Clots (prior PE). No: Anemia All Other Systems: Reviewed and Negative *Physical Exam - Vital Signs Last Vital Signs Temp Pulse Resp BP Pulse Ox 98.9 F 105 H 19 108/79 100 05/03/19 12:20 05/03/19 12:20 05/03/19 12:20 05/03/19 12:20 05/03/19 12:20 - Physical Exam Comments: HR 105, vitals otherwise stable, pt afebrile. Pt in NAD, but appears ill. Obese body habitus. Pt alert and oriented x3. neurosurgeon generally intact, muscular strength and sensation intact. No midline spinal tenderness, step-offs, or crepitus. No tenderness with neck flexion or extension. Head normocephalic, atraumatic. Eyes PERRLA, EOMI. Does not withdraw from light stimuli. Oropharynx without erythema or exudates, no LAD b/l. +dry nasal congestion. Hearing intact. +b/l TM erythema, not bulging. +TTP over R mastoid. Clear heart sounds, S1/S2, no JVD, b/l pedal edema, or heart murmur. Diminished lung sounds throughout; no respiratory distress, wheezes, crackles, or accessory muscle use. No abdominal or CVA tenderness to palpation, no rebound, no guarding. Abdomen soft, non-distended, and with normoactive bowel sounds. Skin without jaundice or rash. 05/03/19 15:39 ED Treatment Course - LABORATORY CBC & Chemistry Diagram: 05/03/19 13:10 05/03/19 13:10 - ADDITIONAL ORDERS Additional order review: Laboratory Results 05/03/19 05/03/19 05/03/19 13:10 13:10 13:10 Sodium 135 L Potassium 3.5 Chloride 105 Carbon Dioxide 24 Anion Gap 7 L BUN 11.5 Creatinine 0.9 Est GFR (CKD-EPI)AfAm 96.69 Est GFR (CKD-EPI)NonAf 83.42 Random Glucose 83 Lactic Acid 1.1 Calcium 8.5 Total Bilirubin 0.3 AST 28 ALT 17 Alkaline Phosphatase 103 Troponin I < 0.02 Total Protein 8.1 Albumin 3.6 Serum , Qual Negative 05/03/19 13:10 RBC 4.59 MCV 85.5 MCHC 33.5 RDW 15.1 MPV 8.6 Neutrophils % 59.2 Lymphocytes % 29.6 D Monocytes % 10.7 H Eosinophils % 0.1 D Basophils % 0.4 - RADIOLOGY Radiology Studies Ordered: Category Date Time Status HEAD CT WITHOUT CONTRAST [CT] Stat CT Scan 05/03/19 14:[address] W/O CONTRAST [CT] Stat CT Scan 05/03/19 14:17 Completed CHEST X-RAY PORTABLE* [RAD] Stat Radiology 05/03/19 14:33 Completed - Medications Given in the ED: ED Medications Discontinued Medications Generic Name Dose Route Start Last Admin Trade Name Freq PRN Reason Stop Dose Admin Acetaminophen 1,000 mg 05/03/19 13:07 05/03/19 14:17 Ofirmev Injection - IVPB 05/03/19 13:08 1,000 mg ONCE ONE Administration Albuterol/Ipratropium 1 amp 05/03/19 13:15 05/03/19 14:34 Duoneb - NEB 05/03/19 13:46 1 amp Q15M WON Administration Sodium Chloride 1,000 mls @ 1,000 mls/hr 05/03/19 13:13 05/03/19 14:19 Normal Saline - IV 05/03/19 14:12 1,000 mls/hr ASDIR STA Administration Ondansetron HCl 4 mg 05/03/19 13:13 05/03/19 14:19 Zofran Injection IVPUSH 05/03/19 13:14 4 mg ONCE ONE Administration Medical Decision Making - Medical Decision Making Pt was seen at bedside, also will be seen by attending Dr. Hunter. Pt presenting with syncope vs seizure episode yesterday, worsening ear pain and tenderness concerning for mastoiditis. Pt with no neck stiffness or light sensitivity, no meningeal signs on exam. Will evaluate for infection ( mastoiditis, pneumonia, worsening OM, UTI, influenza), syncope vs seizure. Provided 4 mg IV zofran, 1 L IV NS, duonebs, and 1 g ofirmev for improvement of pain, nausea, diminished breath sounds. Will continue to reassess pt and monitor for symptomatic improvement. ECG: Sinus tachycardia, intervals WNL (HR 104, RI 140, QRS 72, QTc 447). No TWIs or significant ST segment changes. No significant changes from prior ECG ( 03/13/2017). 05/03/19 15:45 CBC and CMP WNL Influenza negative negative Pt taken for CT scans (non-contrast head and mastoid), chest x-ray 05/03/19 16:29 Chest x-ray with no acute pathology. 05/03/19 16:40 CT head with no acute pathology CT temporal bone/sinuses: sinusitis, small-moderate effusion in R mastoid; no necrosis Providing 1 g IV ceftriaxone and 15 mg IV toradol for pain. 05/03/19 18:01 Paged hospitalist team for admission. Pt requires inpatient admission due to need for IV antibiotics; pt is immunosuppressed and has failed outpatient treatment management, concern for spread of OM. 05/03/19 18:04 Pt admitted to hospitalist team. 05/03/19 18:24 Discharge - Discharge Information Problems reviewed: Yes Clinical Impression/Diagnosis: Human immunodeficiency virus (HIV) disease Otitis media Qualifiers: Otitis media type: unspecified Chronicity: acute Qualified Code(s): H66.90 - Otitis media, unspecified, unspecified ear Mastoiditis Qualifiers: Laterality: right Qualified Code(s): H70.91 - Unspecified mastoiditis, right ear Sinusitis Qualifiers: Sinusitis location: unspecified location Chronicity: acute Recurrence: non- recurrent Qualified Code(s): J01.90 - Acute sinusitis, unspecified Condition: Stable - Admission Yes - Follow up/Referral Referrals: Kori Enamorado RN PLASTIC SURGERY [Primary Care Provider] - - Patient Discharge Instructions - Post Discharge Activity
[2019-05-03] MEDS ORDERED: ACETAMINOPHEN 1000 MG/100 ML VIAL (NON FORMULARY) IVPB ONE (13:07)
[2019-05-03] MEDS ORDERED: ONDANSETRON 4 MG/2 ML VIAL IVPUSH ONE (13:13)
[2019-05-03] MEDS ORDERED: SODIUM CHLORIDE 1,000 ML IV STA (13:13)
[2019-05-03 13:29] LABS: BASO % 0.4 % (0-2.0); EOS % 0.1 % (0-4.5); HEMATOCRIT 39.2 % (32.4-45.2); HEMOGLOBIN 13.1 GM/dL (10.7-15.3); LYMPH % 29.6 % (8-40); MCH 28.6 pg (25.7-33.7); MCHC 33.5 g/dl (32.0-36.0); MEAN CELL VOLUME 85.5 fl (80-96); MEAN PLT VOLUME 8.6 fl (7.5-11.1); MONO % 10.7 % (3.8-10.2); NEUT % 59.2 % (42.8-82.8); PLATELET COUNT 174 K/MM3 (134-434); RBC 4.59 M/mm3 (3.60-5.2); RDW 15.1 % (11.6-15.6); WHITE BLOOD COUNT 6.4 K/mm3 (4.0-10.0)
[2019-05-03] MEDS: ALBUTEROL SO4 2.5/IPRATROPIUM 0.5 INH SOL 3 ML VIAL.NEB. NEB SCH ×3 (14:00→14:34)
[2019-05-03 14:06] LABS: ALBUMIN 3.6 g/dl (3.4-5.0); ALK PHOS 103 U/L (45-117); ANION GAP 7 MMOL/L (8-16); BILIRUBIN,TOTAL 0.3 mg/dL (0.2-1); BLOOD UREA NITROGEN 11.5 mg/dL (7-18); CALCIUM 8.5 mg/dL (8.5-10.1); CHLORIDE 105 mmol/L (98-107); CO2 24 mmol/L (21-32); CREATININE 0.9 mg/dL (0.55-1.3); GLUCOSE,RANDOM 83 mg/dL (74-106); POTASSIUM 3.5 mmol/L (3.5-5.1); SGOT/AST 28 U/L (15-37); SGPT/ALT 17 U/L (13-61); SODIUM 135 mmol/L (136-145); TOT PROT 8.1 g/dl (6.4-8.2)
[2019-05-03] MEDS ORDERED: ALBUTEROL SO4 2.5/IPRATROPIUM 0.5 INH SOL 3 ML VIAL.NEB. NEB ONE (15:39)
[2019-05-03] MEDS ORDERED: CEFTRIAXONE 1,000 MG in DEXTROSE 5%-WATER - 50 ML IVPB ONE (17:43)
--- NOTE | 2019-05-03 18:02 | PDOC ---
Documentation entered by Michael Gomes SCRIBE, acting as scribe for Duane Hunter MD. Duane Hunter MD: This documentation has been prepared by the Mireya rahman Nirvannie, SCRIBE, under my direction and personally reviewed by me in its entirety. I confirm that the documentation accurately reflects all work, treatment, procedures, and medical decision making performed by me. Attending Attestation - Resident Resident Name: Felicita Garcia - ED Attending Attestation I have performed the following: I have examined & evaluated the patient, The case was reviewed & discussed with the resident, I agree w/resident's findings & plan, Exceptions are as noted - HPI HPI: 05/03/19 15:15 Agree with resident HPI - Physicial Exam PE: 05/03/19 17:44 GENERAL: Awake, alert, and fully oriented, in no acute distress. Non toxic HEAD: No signs of trauma EYES: PERRLA, EOMI, sclera anicteric, conjunctiva clear ENT: +bulging R TM, +ttp to posterior auricular area. No bogginess or DC. No displacement of R auricle NECK: Normal ROM, supple, no lymphadenopathy, JVD, or masses BACK: No midline cervical, thoracic, or lumbar ttp LUNGS: Breath sounds equal, clear to auscultation bilaterally. No wheezes, and no crackles HEART: Regular rate and rhythm, normal S1 and S2, no murmurs, rubs or gallops ABDOMEN: Soft, nontender, normoactive bowel sounds. No guarding, no rebound. No masses EXTREMITIES: Normal range of motion, no edema. No cords, erythema, or tenderness NEUROLOGICAL: Normal speech, cranial nerves intact, 5/5 strength in all 4 extremities, normal sensation to light touch in all 4 extremities, normal cerebellar exam, normal gait SKIN: Warm, Dry, normal turgor, no rashes or lesions noted. - Medical Decision Making 05/03/19 17:50 33yo F, hx MMP including HIV (last CD4 per [facility], compliant with HAART ) presents to the ED with persistent ear and posterior auricular pain despite two outpt courses of abx. PT also had syncopal episode yesterday as she was walking to the bathroom - states she felt lightheaded, had tunnel vision, then fell to the ground, striking her head. THinks she was out for a few seconds but is not sure. She reported urine incontinence, previously, but denies when I ask. CTH negative for acute head trauma. EKG is not concerning for arrhythmia. Likely vasovagal syncope given prodrome. Vitals with mild tachycardia, however on my evaluation her heart rate was 90. Exam is consistent with mastoiditis, confirmed by CT. In light of failing two outpatient courses of antibiotics, as well as HIV status , will initiate IV antibiotics (ceftriaxone - pt has taken pencillins safely before) and admit patient for further management.
[2019-05-03] MEDS ORDERED: KETOROLAC TROMETHAMINE 15 MG/ML VIAL IVPUSH ONE (18:04)
[2019-05-03] MEDS ORDERED: CEFTRIAXONE 1 GM/50 ML BAG ONE (19:04)
[2019-05-03] MEDS ORDERED: KETOROLAC TROMETHAMINE 15 MG/ML VIAL ONE (19:04)
--- NOTE | 2019-05-03 19:27 | PN ---
Teaching Attending Note Name of Resident: Matthew Bar ATTENDING PHYSICIAN STATEMENT I saw and evaluated the patient. I reviewed the resident's note and discussed the case with the resident. I agree with the resident's findings and plan as documented. SUBJECTIVE: Patient is a 33 year old woman with a PMH of HIV disease (prior IVDU), Chronic ear infections?, Ear tube placement, Asthma (nonadherent with medications), GERD , Cholecystectomy, Bariatric gastric sleeve surgery, PE (not compliant with AC) , and Anemia (required iron and blood transfusions), who is presenting with complaints of worsening ear pain, and syncopal episode yesterday. Patient was seen at a [place] [facility] 04/24/19, and was treated for right otitis media with Augmentin. Patient developed itching, and was switched to Zithromax (took it for 5 days) at [facility]. Patient states right ear pain has worsened and is now affecting left ear. Two days ago she developed pain behind right ear, nausea, vomiting, and loose stools , and "passed out" while walking to the bathroom (hit her head, unknown downtime ). Patient had incontinence during this episode. Patient with Tmax this morning (101 oral), last took Tylenol at 7 am. Patient denies any headache, neck stiffness, vision changes, syncope, chest pain, palpitations, SOB, abdominal pain, urinary symptoms, constipation, or leg swelling. Recently had six loose bowel movements. Patient denies any current cigarette, alcohol, or illicit drug use. Denies any recent travel or sick contacts. OBJECTIVE: Alert Vital Signs Period Temp Pulse Resp BP Sys/Meraz Pulse Ox Last 24 Hr 98.9 F 105 19 108/79 100 HEENT: No Jaundice, eye redness or discharge, PERRLA, EOMI. Normocephalic, atraumatic. External ears are normal; tympanic membrane erythema, right mstoid and and post auricular area tenderness; diminished hearing in right ear. No nasal discharge. Neck: Supple, nontender. No palpable adenopathy or thyromegaly. No JVD Chest: Good effort. Clear to auscultation and percussion. Heart: Regular. No S3, rub or murmur Abdomen: Not distended, soft, nontender and no HSM. No rebound or guarding. Normal bowel sounds. Ext: Peripheral pulses intact. No leg edema. Skin: Warm and dry. No petechiae, rash or ecchymosis. Neuro: Alert. Oriented x3. CN 2-12 grossly intact. Sensation grossly intact in all four extremities and DTR are symmetric. Abnormal gait. Psych: Appropriate mood and affect. Good insight. Current Medications Generic Name Dose Route Start Last Admin Trade Name Freq PRN Reason Stop Dose Admin Enoxaparin Sodium 40 mg 05/03/19 19:45 Lovenox - SQ DAILY [facility] Home Medications Medication Instructions Recorded Albuterol 0.083% Nebulizer Opal 1 amp NEB PRN PRN 06/06/18 [Ventolin 0.083% Nebulizer Soln -] Etonogestrel [Nexplanon] 68 mg SQ ASDIR 09/18/18 Albuterol Sulfate Inhaler - 1 - 2 inh PO Q4H PRN #1 inhaler 12/29/18 [Ventolin HFA Inhaler -] Beclomethasone Dipropionate [Qvar] 1 puff IH BID #1 aer.w.adap 12/29/18 Loratadine [Claritin -] 10 mg PO DAILY PRN #30 tablet 12/29/18 Mometasone Furoate 1 spray NS BID #1 spray.pump 12/29/18 Darunavir/Cob/Emtri/Tenof Alaf 1 each PO DAILY #30 tablet 01/05/19 [Symtuza [id number] mg Tab] Dolutegravir Sodium [Tivicay] 50 mg PO BID #60 tablet 01/05/19 Oxycodone HCl/Acetaminophen 1 tab PO Q4H #12 tablet MDD 6 04/24/19 [Percocet 5-325 mg Tablet] Oxycodone HCl/Acetaminophen 1 tab PO Q4H #6 tablet MDD 6 04/24/19 [Percocet 5-325 mg Tablet] Abnormal Lab Results 05/03/19 05/03/19 13:10 13:10 Monocytes % 10.7 H Sodium 135 L Anion Gap 7 L ASSESSMENT AND PLAN: 1. Right otitis media/mastoiditis/sinusitus - CT scan of head didnot show any acute abnormalities, and CT of temporal bone showed findings consistent with mastoiditis and sinusitis. No acute abnormality on CXR. Flu swab is negative. Will treat with IV Rocephin and Doxycycline, consult ID and ENT. Will benefit from ENT-obtained inner ear swab for culture to guide antibiotic coverage. Send diarrheal stool for analysis including C.Diff toxin and Cryptosporidium. Contact her PCP to find out more about diagnosis of PE and why anticoagulation was not resumed after childbirth. Will continue comprehensive care for all of patients comorbid conditions including duoneb PRN for asthma and HAART for HIV disease. Will check viral load and CD4 count. 2. Obesity Counseled on the risks associated with obesity. Will provide patient all the necessary assistance, counseling and positive reinforcement to facilitate weight loss. Consult web marketing intern. 3. DVT prophylaxis - Lovenox 40 mg SQ q 24 hours. 4. Advance directives - Full code
[2019-05-03] MEDS ORDERED: ENOXAPARIN NA (PORCINE) 40 MG/0.4 ML DISP.SYRIN SQ ONE (20:21)
[2019-05-03] MEDS: ENOXAPARIN NA (PORCINE) 40 MG/0.4 ML DISP.SYRIN SQ SCH (20:24)
--- NOTE | 2019-05-03 21:07 | HP ---
CHIEF COMPLAINT: Ear pain PCP: Dr. 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 She endorses having a fever of 101 at home that subsided with tylenol earlier today. She notes hearing loss and sensation of ringing in her ears. She had a dizzy spell in the shower on friday describing it as if the room was spinning around her. This acutely spread to the other ear as well. Pt has had multiple bouts of nonbloody foul smelling watery diarrhea X 6 since friday. Pt notes she had a tympanostomy tube placed due to chronic ear infections but it was removed due to it getting infected. She notes to having rexplanon implant for contraception as pt is not very compliant with medications. Pt denies any hx of nasal polyps, aspirin exposure, headache, photophobia, jaw claudication, cp, sob, abd pain, constipation or bladder compliants. Pt has a hx of multiple medication allergies. Pt was recently seen by ENT for sinusitis management and sent home on augmentin and azithromycin therapy, and the augmentin gave her a rash/allergic reaction prompting her to d/ c the medication. Pt has tried vancomycin in the past as well for this resulting in what she describes as feeling flushed and had GI distress. She does not know her most recent CD4 count but as of 11/25 it was CD4 393, but does endorse being placed on bactrim in the past. ER course was notable for: (1) 1 g Ceftriaxone given, Influenza negative, EKG sinus tachy w normal QTc, (2) CT sinuses- rt mastoid fluid accumulation as well as paraspinal dx. Moderate b/l ethmoid, maxillary, sphenoid sinus opacification consistent with sinusitis. 4mg zofran, 1 L IV NS, duonebs, 1g Ofirmev (3) CXR negative, Social History: Smoking: denies Alcohol: denies Drugs: denies Allergies ciprofloxacin [From Cipro] Allergy (Severe, Verified 05/03/19 12:20) moxifloxacin HCl [From Avelox] Allergy (Severe, Verified 05/03/19 12:20) levofloxacin [From Levaquin] Allergy (Intermediate, Verified 05/03/19 12:20) Hives amoxicillin Allergy (Mild, Verified 05/03/19 12:20) Itching heparin Allergy (Mild, Verified 05/03/19 12:20) Itching vancomycin Allergy (Unknown, Verified 05/03/19 12:20) Swelling raisin Allergy (Intermediate, Uncoded 05/03/19 12:20) Itching HOME MEDICATIONS: Home Medications Medication Instructions Recorded Albuterol 0.083% Nebulizer Opal 1 amp NEB PRN PRN 06/06/18 [Ventolin 0.083% Nebulizer Soln -] Etonogestrel [Nexplanon] 68 mg SQ ASDIR 09/18/18 Albuterol Sulfate Inhaler - 1 - 2 inh PO Q4H PRN #1 inhaler 12/29/18 [Ventolin HFA Inhaler -] Beclomethasone Dipropionate [Qvar] 1 puff IH BID #1 aer.w.adap 12/29/18 Loratadine [Claritin -] 10 mg PO DAILY PRN #30 tablet 12/29/18 Mometasone Furoate 1 spray NS BID #1 spray.pump 12/29/18 Darunavir/Cob/Emtri/Tenof Alaf 1 each PO DAILY #30 tablet 01/05/19 [Symtuza [id number] mg Tab] Dolutegravir Sodium [Tivicay] 50 mg PO BID #60 tablet 01/05/19 Oxycodone HCl/Acetaminophen 1 tab PO Q4H #12 tablet MDD 6 04/24/19 [Percocet 5-325 mg Tablet] Oxycodone HCl/Acetaminophen 1 tab PO Q4H #6 tablet MDD 6 04/24/19 [Percocet 5-325 mg Tablet] REVIEW OF SYSTEMS negative except in HPI PHYSICAL EXAMINATION Vital Signs - 24 hr 05/03/19 12:20 Temperature 98.9 F Pulse Rate 105 H Respiratory 19 Rate Blood Pressure 108/79 O2 Sat by Pulse 100 Oximetry (%) GENERAL: Awake, alert, and fully oriented, in no acute distress. HEAD: mandibular ttp on rt side, increased fullness on rt auricle, ramus of mandible. EYES: extraocular movements intact, sclera anicteric, conjunctiva clear. No erythema or discharge present. EARS, NOSE, THROAT: Rt ear fullness ttp of tragus and pinna, erythematous ear canal nares patent, oropharynx clear without exudates, no nasal polyps appreciated or nasal discharge. NECK: Normal range of motion, increased fullness, thyromegaly LUNGS: Breath sounds equal, slightly decreased breath sounds bilaterally. No wheezes, and no crackles. No accessory muscle use. HEART: Regular rate and rhythm, normal S1 and S2 without murmur, rub or gallop. ABDOMEN: Soft, nontender, not distended, normoactive bowel sounds, no guarding, no rebound MUSCULOSKELETAL: Normal range of motion at all joints. No bony deformities or tenderness. No CVA tenderness. LOWER EXTREMITIES: 2+ pulses, warm, well-perfused. No calf tenderness. No peripheral edema. NEUROLOGICAL: Cranial nerves II-XII intact. Normal speech. PSYCHIATRIC: Cooperative. Good eye contact. Appropriate mood and affect. SKIN: Warm, dry, normal turgor, no rashes or lesions noted, Laboratory Results - last 24 hr 05/03/19 05/03/19 05/03/19 13:10 13:10 13:10 WBC 6.4 RBC 4.59 Hgb 13.1 Hct 39.2 MCV 85.5 MCH 28.6 MCHC 33.5 RDW 15.1 Plt Count 174 MPV 8.6 Absolute Neuts (auto) 3.8 Neutrophils % 59.2 Lymphocytes % 29.6 D Monocytes % 10.7 H Eosinophils % 0.1 D Basophils % 0.4 Nucleated RBC % 0 Sodium 135 L Potassium 3.5 Chloride 105 Carbon Dioxide 24 Anion Gap 7 L BUN 11.5 Creatinine 0.9 Est GFR (CKD-EPI)AfAm 96.69 Est GFR (CKD-EPI)NonAf 83.42 Random Glucose 83 Lactic Acid Calcium 8.5 Total Bilirubin 0.3 AST 28 ALT 17 Alkaline Phosphatase 103 Troponin I < 0.02 Total Protein 8.1 Albumin 3.6 Serum , Qual Negative Influenza A (Rapid) Influenza B (Rapid) ASSESSMENT/PLAN: This is a 33 y/o F with a PMHx of congenital HIV(not on HAART therapy), chronic sinusitis, PE (non-compliant with AC since she had a child 10 mths ago), and anemia (requiring Fe and blood transfusions in past), who presents to the ED c/ o worsening Rt sided ear pain associated with fullness in her sinuses. #Acute mastoiditis 2/2 acute otitis media/chronic sinusitis - CT sinuses- rt mastoid fluid accumulation as well as paraspinal dx. Moderate b /l ethmoid, maxillary, sphenoid sinus opacification consistent with sinusitis. - ENT consulted- may need to get specimen and culture of mastoid fluid to better target the infection. - ID consulted given multiple allergies - IV Ceftriaxone 2g, Doxycycline 100 PO BID - can send C diff stool Ag and toxin given recent abx use and multiple bouts of diarrhea. - Influenza negative, CENTOR criteria score of 0 no need for rapid strep test #Hx of PE- > not on AC - order CD4, viral load - speak to PCP regarding finding out if their is imaging confirming PE is still present. - 40 lovenox SQ daily for now until confirmation of no PE - if nothing recent is found may need to do CTA. - avoid heparin given allergy Visit type - Emergency Visit Emergency Visit: Yes ED Registration Date: 05/03/19 Care time: The patient presented to the Emergency Department on the above date and was hospitalized for further evaluation of their emergent condition. - New Patient This patient is new to me today: Yes Date on this admission: 05/09/19 - Critical Care Critical Care patient: No ATTENDING PHYSICIAN STATEMENT I saw and evaluated the patient. I reviewed the resident's note and discussed the case with the resident. I agree with the resident's findings and plan as documented. SUBJECTIVE: OBJECTIVE: ASSESSMENT AND PLAN:
[2019-05-03] MEDS ORDERED: CEFTRIAXONE 1 GM in DEXTROSE 5%-WATER - 50 ML IVPB ONE (21:47)
[2019-05-03] MEDS ORDERED: DOXYCYCLINE HYCLATE 100 MG CAPSULE PO ONE (22:02)
[2019-05-03] MEDS ORDERED: DOXYCYCLINE HYCLATE 100 MG VIAL ONE (22:08)
[2019-05-03] MEDS: DOXYCYCLINE INJECTION 100 MG in DEXTROSE 5%-WATER - 100 ML IVPB SCH ×2 (22:15→22:39)
[2019-05-03] MEDS ORDERED: DOXYCYCLINE INJECTION 100 MG in DEXTROSE 5%-WATER 100 ML IVPB SCH (22:52)
[2019-05-03] MEDS ORDERED: ACETAMINOPHEN 650 MG/20.3 ML ORAL SOLUTION (CUPS) PO PRN (23:34)
[2019-05-04 00:53] LABS: EPI CELLS 3.6 /HPF (0-5/HPF); HYALINE CASTS 41 /lpf (0-8); PH,URINE 5.5 (5.0-8.0); URINE APPEARANCE CLOUDY; URINE BACTERIA 407.5 /hpf (NEGATIVE); URINE BILIRUBIN NEGATIVE (NEGATIVE); URINE COLOR YELLOW; URINE GLUCOSE (UA) NEGATIVE (NEGATIVE); URINE KETONE TRACE (NEGATIVE); URINE LEUK ESTERASE TRACE (NEGATIVE); URINE NITRITE NEGATIVE (NEGATIVE); URINE PROTEIN 1+ (NEGATIVE); URINE UROBILINOGEN 0.2 mg/dL (0.2-1.0); URINE WBC 52 /hpf (0-5)
[2019-05-04 01:27] LABS: URINE RBC 7.3 /hpf (0-4)
[2019-05-04 06:29] LABS: BASO % 0.3 % (0-2.0); EOS % 0.4 % (0-4.5); HEMATOCRIT 35.1 % (32.4-45.2); LYMPH % 25.7 % (8-40); MCH 28.9 pg (25.7-33.7); MCHC 34.3 g/dl (32.0-36.0); MEAN CELL VOLUME 84.2 fl (80-96); MEAN PLT VOLUME 8.5 fl (7.5-11.1); MONO % 7.8 % (3.8-10.2); NEUT % 65.8 % (42.8-82.8); PLATELET COUNT 164 K/MM3 (134-434); RBC 4.17 M/mm3 (3.60-5.2); RDW 14.6 % (11.6-15.6); WHITE BLOOD COUNT 5.9 K/mm3 (4.0-10.0)
[2019-05-04 06:46] LABS: ALBUMIN 3.1 g/dl (3.4-5.0); BILIRUBIN,TOTAL 0.2 mg/dL (0.2-1); BLOOD UREA NITROGEN 10.3 mg/dL (7-18); CALCIUM 8.1 mg/dL (8.5-10.1); CREATININE 0.7 mg/dL (0.55-1.3); MAGNESIUM 2.1 mg/dL (1.8-2.4); PHOSPHOROUS 2.7 mg/dL (2.5-4.9); POTASSIUM 3.3 mmol/L (3.5-5.1)
--- NOTE | 2019-05-04 09:27 | PN ---
Physical Exam: SUBJECTIVE: Patient seen and examined at the bedside. reports a syncopal episode on Friday with LOC loss for about 10 minutes. some dizziness still with ambulation. denies chest pain or shortness of breath. OBJECTIVE: Patient is a 33 year old F with a past medical history of congenital HIV(on symtuza [id number] tablets, Tivicay 50mg BID), chronic sinusitis, PE (non- compliant with AC since she had a child 10 mths ago-diagnosed with PE on 2010 and has been on Lovenox since then, but stopped in august 2018), and anemia ( requiring Fe and blood transfusions in past). patient reports that on Friday she got out of the shower and fell with LOC loss for apx 10 minutes. She comes to the ED with worsening Rt sided ear pain associated with fullness in her sinuses and a fever of 101F at home. Vital Signs Period Temp Pulse Resp BP Sys/Meraz Pulse Ox Last 24 Hr 98.3 F-98.9 F 85-105 17-19 89-108/53-79 99-100 GENERAL: The patient is awake, alert, and fully oriented, in no acute distress. HEAD: Normal with no signs of trauma. EYES: PERRL, extraocular movements intact, sclera anicteric, conjunctiva clear. No ptosis. ENT: Ears normal, nares patent, oropharynx clear without exudates, moist mucous membranes. NECK: Trachea midline, full range of motion, supple. LUNGS: Breath sounds equal, clear to auscultation bilaterally, no wheezes, no crackles, no accessory muscle use. HEART: Regular rate and rhythm, S1, S2 without murmur, rub or gallop. ABDOMEN: Soft, nontender, nondistended, normoactive bowel sounds, no guarding, no rebound, no hepatosplenomegaly, no masses. EXTREMITIES: no edema. NEUROLOGICAL: Normal speech, gait not observed. PSYCH: Normal mood, normal affect. SKIN: Warm, dry, normal turgor, no rashes or lesions noted Laboratory Results - last 24 hr 05/03/19 05/03/19 05/03/19 13:10 13:10 13:10 WBC 6.4 RBC 4.59 Hgb 13.1 Hct 39.2 MCV 85.5 MCH 28.6 MCHC 33.5 RDW 15.1 Plt Count 174 MPV 8.6 Absolute Neuts (auto) 3.8 Neutrophils % 59.2 Lymphocytes % 29.6 D Monocytes % 10.7 H Eosinophils % 0.1 D Basophils % 0.4 Nucleated RBC % 0 Sodium 135 L Potassium 3.5 Chloride 105 Carbon Dioxide 24 Anion Gap 7 L BUN 11.5 Creatinine 0.9 Est GFR (CKD-EPI)AfAm 96.69 Est GFR (CKD-EPI)NonAf 83.42 Random Glucose 83 Lactic Acid Calcium 8.5 Phosphorus Magnesium Total Bilirubin 0.3 AST 28 ALT 17 Alkaline Phosphatase 103 Troponin I < 0.02 Total Protein 8.1 Albumin 3.6 Serum , Qual Negative Urine Color Urine Appearance Urine pH Ur Specific [place] Urine Protein Urine Glucose (UA) Urine Ketones Urine Blood Urine Nitrite Urine Bilirubin Urine Urobilinogen Ur Leukocyte Esterase Urine WBC (Auto) Urine RBC (Auto) Urine Casts (Auto) U Epithel Cells (Auto) Urine Bacteria (Auto) Influenza A (Rapid) Influenza B (Rapid) 05/03/19 05/03/19 05/04/19 13:10 13:15 00:25 WBC RBC Hgb Hct MCV MCH MCHC RDW Plt Count MPV Absolute Neuts (auto) Neutrophils % Lymphocytes % Monocytes % Eosinophils % Basophils % Nucleated RBC % Sodium Potassium Chloride Carbon Dioxide Anion Gap BUN Creatinine Est GFR (CKD-EPI)AfAm Est GFR (CKD-EPI)NonAf Random Glucose Lactic Acid 1.1 Calcium Phosphorus Magnesium Total Bilirubin AST ALT Alkaline Phosphatase Troponin I Total Protein Albumin Serum , Qual Urine Color Yellow Urine Appearance Cloudy Urine pH 5.5 Ur Specific [place] 1.033 Urine Protein 1+ H Urine Glucose (UA) Negative Urine Ketones Trace H Urine Blood Negative Urine Nitrite Negative Urine Bilirubin Negative Urine Urobilinogen 0.2 Ur Leukocyte Esterase Trace Urine WBC (Auto) 52 Urine RBC (Auto) 7.3 Urine Casts (Auto) 41 U Epithel Cells (Auto) 3.6 Urine Bacteria (Auto) 407.5 Influenza A (Rapid) Negative Influenza B (Rapid) Negative 05/04/19 05/04/19 05:35 05:35 WBC 5.9 RBC 4.17 Hgb 12.0 Hct 35.1 MCV 84.2 MCH 28.9 MCHC 34.3 RDW 14.6 Plt Count 164 MPV 8.5 Absolute Neuts (auto) 3.9 Neutrophils % 65.8 Lymphocytes % 25.7 Monocytes % 7.8 Eosinophils % 0.4 D Basophils % 0.3 Nucleated RBC % 0 Sodium 137 Potassium 3.3 L Chloride 108 H Carbon Dioxide 25 Anion Gap 4 L BUN 10.3 Creatinine 0.7 Est GFR (CKD-EPI)AfAm 131.02 Est GFR (CKD-EPI)NonAf 113.04 Random Glucose 95 Lactic Acid Calcium 8.1 L Phosphorus 2.7 Magnesium 2.1 Total Bilirubin 0.2 AST 25 ALT 14 Alkaline Phosphatase 90 Troponin I Total Protein 7.0 Albumin 3.1 L Serum , Qual Urine Color Urine Appearance Urine pH Ur Specific [place] Urine Protein Urine Glucose (UA) Urine Ketones Urine Blood Urine Nitrite Urine Bilirubin Urine Urobilinogen Ur Leukocyte Esterase Urine WBC (Auto) Urine RBC (Auto) Urine Casts (Auto) U Epithel Cells (Auto) Urine Bacteria (Auto) Influenza A (Rapid) Influenza B (Rapid) Active Medications Generic Name Dose Route Start Last Admin Trade Name Freq PRN Reason Stop Dose Admin Acetaminophen 650 mg 05/03/19 23:34 Tylenol Oral Solution - PO Q6H PRN PAIN Enoxaparin Sodium 40 mg 05/03/19 19:45 05/03/19 20:24 Lovenox - SQ 40 mg DAILY WON Administration Doxycycline Hyclate 100 mg/ 100 mls @ 50 mls/hr 05/03/19 22:52 Dextrose IVPB BID WON Ceftriaxone Sodium 2 gm/ 100 mls @ 200 mls/hr 05/04/19 18:00 Dextrose IVPB DAILY [facility] Protocol ASSESSMENT/PLAN: Problem List - Problems (1) Syncope Assessment/Plan: likely secondary to acute infection, ear infection PT ordered on antibiotic coverage Code(s): R55 - SYNCOPE AND COLLAPSE (2) Mastoiditis Assessment/Plan: seen by ENT who advised outpatient follow up Code(s): H70.90 - UNSPECIFIED MASTOIDITIS, UNSPECIFIED EAR Qualifiers: Laterality: right Qualified Code(s): H70.91 - Unspecified mastoiditis, right ear (3) Otitis media Assessment/Plan: CT sinuses- rt mastoid fluid accumulation as well as paraspinal dx. Moderate b/ l ethmoid, maxillary, sphenoid sinus opacification consistent with sinusitis. on Ceftriaxone 2g, Doxycycline 100 PO BID flu negative Code(s): H66.90 - OTITIS MEDIA, UNSPECIFIED, UNSPECIFIED EAR Qualifiers: Otitis media type: unspecified Chronicity: acute Qualified Code(s): H66.90 - Otitis media, unspecified, unspecified ear (4) Human immunodeficiency virus (HIV) disease Assessment/Plan: congenital continue home medications Code(s): B20 - HUMAN IMMUNODEFICIENCY VIRUS [HIV] DISEASE (5) History of pulmonary embolism Assessment/Plan: history of PE, diagosed 2010, stopped anticoagulation 2018. On Lovenox until PE can be confirmed. pulmonary consulted Code(s): Z86.711 - PERSONAL HISTORY OF PULMONARY EMBOLISM Visit type - Emergency Visit Emergency Visit: Yes ED Registration Date: 05/03/19 Care time: The patient presented to the Emergency Department on the above date and was hospitalized for further evaluation of their emergent condition. - New Patient This patient is new to me today: Yes Date on this admission: 05/04/19 - Critical Care Critical Care patient: No - Discharge Referral Referred to [facility] No
[2019-05-04] MEDS ORDERED: POTASSIUM CHLORIDE TABS 20 MEQ TABLET.ER (FP) PO ONE (09:33)
[2019-05-04] MEDS ORDERED: PATIENT'S OWN MEDICATION (NON-FORMULARY) (Darunavir/Cob/Emtri/Tenof Alaf [Symtuza 800-150- PO SCH (10:00)
[2019-05-04] MEDS ORDERED: CEFTRIAXONE 2 GM in DEXTROSE 5%-WATER 100 ML IVPB SCH (10:00)
--- NOTE | 2019-05-04 10:36 | EKG ---
Test Reason : Blood Pressure : / mmHG Vent. Rate : 104 BPM Atrial Rate : 104 BPM P-R Int : 140 ms QRS Dur : 072 ms QT Int : 340 ms P-R-T Axes : 066 009 029 degrees QTc Int : 447 ms SINUS TACHYCARDIA OTHERWISE NORMAL ECG WHEN COMPARED WITH ECG OF 13-MAR-2017 14:27, VENT. RATE HAS INCREASED BY 41 BPM T WAVE AMPLITUDE HAS DECREASED IN ANTERIOR LEADS Confirmed by Sandro Simpson MD ([id number]) on 05/04/2019 10:36:10 AM Referred By: Confirmed By:Sandro Simpson MD
[2019-05-04] MEDS ORDERED: POTASSIUM CHLORIDE TABS 10 MEQ TABLET.ER (FP) ONE (11:00)
[2019-05-04] MEDS ORDERED: DOXYCYCLINE HYCLATE 100 MG VIAL ONE (11:01)
--- NOTE | 2019-05-04 13:57 | CONSULT ---
Consult - text type - Consultation Consultation Note: ENT consult 33 yo woman c/o right ear pain x several days. Had an ear infection, took abx. Associated right hearing loss x [address] mastoids indicates a small amount of fluid density material in the right mastoid tip without coalescence. P/WD obese BF sitting comfortably in a gurney, in NAD Smith is to the right Neck: mild right upper SCM and TMJ tenderness, no masses AU opaque TMs with minimal malleus erythema Imp: referred otalgia, no clinical evidence of mastoiditis Recommend: Outpatient f/u OTC analgesics Reconsult prn
--- NOTE | 2019-05-04 15:27 | PN ---
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 ANEMIA ASTHMA NOT IN ACUTE EXACERBATION PLAN ABX PER ID INHALED BRONCHODILATORS ECHO PFTS OUTPATIENT D-DIMER CHEST CT DR MADDOX Problem List - Problems (1) Flu-like symptoms Code(s): R68.89 - OTHER GENERAL SYMPTOMS AND SIGNS (2) Sinusitis Code(s): J32.9 - CHRONIC SINUSITIS, UNSPECIFIED Qualifiers: Sinusitis location: unspecified location Chronicity: acute Recurrence: non-recurrent Qualified Code(s): J01.90 - Acute sinusitis, unspecified (3) Human immunodeficiency virus (HIV) disease Code(s): B20 - HUMAN IMMUNODEFICIENCY VIRUS [HIV] DISEASE (4) Asthma, mild intermittent Code(s): J45.20 - MILD INTERMITTENT ASTHMA, UNCOMPLICATED (5) History of pulmonary embolism Code(s): Z86.711 - PERSONAL HISTORY OF PULMONARY EMBOLISM
--- NOTE | 2019-05-04 15:44 | PN ---
Progress Note (short form) - Note Progress Note: PULMONARY CONSULTATION DICTATED 05/04/19 IMP DYSPNEA + H/O ASTHMA,PE SINUSITIS SYNCOPE H/O PE UNPROVOKED HIV H/O CHEST MASS S/P BX AT [facility] BX - MALIGNANCY PLAN ABX PER ID INHALED BRONCHODILATORS ECHO PFTS OUTPATIENT D-DIMER CHEST CT DR MADDOX Problem List - Problems (1) Flu-like symptoms Code(s): R68.89 - OTHER GENERAL SYMPTOMS AND SIGNS (2) Sinusitis Code(s): J32.9 - CHRONIC SINUSITIS, UNSPECIFIED Qualifiers: Sinusitis location: unspecified location Chronicity: acute Recurrence: non-recurrent Qualified Code(s): J01.90 - Acute sinusitis, unspecified (3) Human immunodeficiency virus (HIV) disease Code(s): B20 - HUMAN IMMUNODEFICIENCY VIRUS [HIV] DISEASE (4) Asthma, mild intermittent Code(s): J45.20 - MILD INTERMITTENT ASTHMA, UNCOMPLICATED (5) History of pulmonary embolism Code(s): Z86.711 - PERSONAL HISTORY OF PULMONARY EMBOLISM
[2019-05-04] MEDS ORDERED: ALBUTEROL SO4 2.5/IPRATROPIUM 0.5 INH SOL 3 ML VIAL.NEB. NEB PRN (16:01)
[2019-05-04 16:08] VITALS: BMI 37.3
--- NOTE | 2019-05-04 16:38 | CONS ---
DATE OF CONSULTATION: 05/04/2019 REFERRING PHYSICIAN: MARIZA Ness HISTORY: Patient is a 33-year-old female with past medical history of congenital HIV on heart therapy, chronic sinusitis, history of pulmonary embolism in 2010 I believe unprovoked. Was on anticoagulation until approximately a year ago when she had a child. Has not been on it for the past 10 months. 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 Apparently, had a biopsy at [facility] years ago. Biopsy-negative malignant. Nonsmoker, no history of IVDA. Admitted to [facility] with the complaint of worsening right-sided ear pain associated with fullness in the sinuses. Patient also had fever at home. Patient also noted hearing loss and ringing in her ears. Apparently, on Friday prior to admission, she had a dizzy spell in the shower and the room was spinning around. She also has been complaining of watery, nonbloody, foul-smelling diarrhea 6 times since Friday. Patient apparently had a tympanostomy tube placed in the past due to chronic ear infections removed secondary to getting infected. Patient apparently was recently evaluated by ENT and placed on antibiotics. Apparently, on the day prior to admission, patient, again, had persistent ear and postauricular pain after 2 courses of antibiotics. She had a syncopal episode the day prior to admission while walking to the bathroom, and she states she felt lightheaded, tunnel vision, and fell to the ground for an unknown period of time. She denied any nausea or vomiting prior to this or chest pains and palpitations. She also states for the past week or so she has been having increasing shortness of breath with exertion while walking on level ground at a rapid pace as well as up inclines. Of note is she has a history of asthma and was placed on Qvar and albuterol but has not used it in over a year. As stated before, she is a nonsmoker. There is no history of occupational exposures to chemicals or fumes. PAST MEDICAL HISTORY: Again includes anemia, history of unprovoked pulmonary embolism 2010, was on Lovenox until most recent , history of anterior mediastinal mass I believe diagnosed in 2006 biopsy negative, congenital HIV, and anemia. REVIEW OF SYSTEMS: Currently no orthopnea. Positive headache, positive ear pain. No nausea, no vomiting at this time. No chest pain, no shortness of breath at rest. No lower extremity edema. SOCIAL HISTORY: Nonsmoker. No occupational exposures. No IVDA. CURRENT MEDICATIONS: Include Symtuza, Tylenol, ceftriaxone, doxycycline, and Lovenox. PHYSICAL EXAMINATION: General: Patient is a well-developed, well-nourished female awake and alert in no acute distress. Vital Signs: She is afebrile. Blood pressure 120/70, respiratory rate 16, O2 saturation 100% on room air. HEENT: Normocephalic, atraumatic. Neck: Supple without adenopathy. Heart: Regular S1, S2. Chest: Clear. Abdomen: Soft. Bowel sounds are positive. Extremities: No cyanosis or edema. LABORATORIES: WBC 5.9, hemoglobin 12, hematocrit 35.1 with a platelet count of 164,000, BUN 10.3, creatinine 0.7. Serology, influenza negative. Chest x-ray: No infiltrates and no effusions. Head CT: No evidence of acute intracranial pathology. No infarct appreciated. There is fluid opacification seen in the right mastoid air cells and partial image paranasal sinuses demonstrate interval development of moderate bilateral ethmoid, maxillary, and sphenoid sinus opacification consistent with a sinusitis, which may be acute. IMPRESSION: 1. Dyspnea, positive history of asthma, positive history of pulmonary embolism currently clinically stable. 2. Sinusitis. 3. Syncope. 4. History of pulmonary embolism, unprovoked. 5. Human immunodeficiency virus. 6. History of chest mass status post biopsy at [facility]. 7. 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 8. Anemia. 9. History of asthma not in acute exacerbation. PLAN: Antibiotics as per Infectious Disease. Inhaled bronchodilators. Obtain echocardiogram. PFT as an outpatient. Serum D-dimer. If positive, will get CTA of the chest. If normal, we will obtain chest ct with contrast to evaluate anterior mediastinal mass. MOSHE MADDOX M.D. HIMANSHU/[id number] MTDD
[2019-05-04] MEDS ORDERED: DEXTROSE 5%-WATER 100 ML IVPB ONE (17:04)
[2019-05-04] MEDS: CEFTRIAXONE 2 GM in DEXTROSE 5%-WATER 100 ML IVPB SCH (17:13)
--- NOTE | 2019-05-04 18:08 | CON.ID ---
Consult Consult Specialty:: infectious disease Referred by:: hospitalist service - History of Present Illness Chief Complaint: congestion, fullness in right ear, dizziness History of Present Illness: 33 yo female with congenitally acquired HIV, well controlled on meds, admitted with a history of right ear discoomfort from 04/23- she was seen at [facility] and prescribed augmentin which made her itchy she came to [facility] and was prescribed zithromaycin, the right ear symptoms persisted and she was given more zithromax by Dr Mccarty an ENT doctor she saw in [place] on Friday she didnot pick it up over the weekend she began sneezing with runny nose and chills she was dizzy Friday night- fever 101 on Friday- may have passed out she was achy and couldn't get out of bed on Friday she went to clinic where she had a temp of 99.8 and was told to goto the ED she had a ct scan showing sinusitis and question of mastoiditis was raise seen [facility] today no otitis, no mastoiditis her 10 month old baby started running a fever yesterday and was diagnosed with influenza B today she is still congested and coughing but starting to feel better didnot get influenza vaccine this year - History Source History Provided By: Patient Limitations to Obtaining History: No Limitations - Past Medical History Pulmonary: Yes: Asthma, Pulmonary Embolus. No: COPD Gastrointestinal: Yes: Hiatal Hernia ...LMP: 07/10/18 ...: No Infectious Disease: Yes: HIV - Past Surgical History Past Surgical History: Yes: Cholecystectomy Additional Surgical History: gastric sleeve, breast augmentation - Alcohol/Substance Use Hx Alcohol Use: No - Smoking History Smoking history: Never smoked Have you smoked in the past 12 months: No Aproximately how many cigarettes per day: 0 - Social History Usual Living Arrangement: With Significant Other ADL: Independent Place of : [place] History of Recent Travel: No Home Medications - Allergies Allergies/Adverse Reactions: Allergies Allergy/AdvReac Type Severity Reaction Status Date / Time ciprofloxacin [From Cipro] Allergy Severe Verified 05/03/19 12:20 moxifloxacin HCl Allergy Severe Verified 05/03/19 12:20 [From Avelox] levofloxacin [From Levaquin] Allergy Intermediate Hives Verified 05/03/19 12:20 amoxicillin Allergy Mild Itching Verified 05/03/19 12:20 heparin Allergy Mild Itching Verified 05/03/19 12:20 vancomycin Allergy Unknown Swelling Verified 05/03/19 12:20 raisin Allergy Intermediate Itching Uncoded 05/03/19 12:20 - Home Medications Home Medications: Ambulatory Orders Albuterol 0.083% Nebulizer Opal [Ventolin 0.083%] 1 neb NEB QID PRN 05/03/19 Darunavir/Cob/Emtri/Tenof Alaf [Symtuza [id number] mg Tab] 1 each PO DAILY 05/03/19 Dolutegravir Sodium [Tivicay] 50 mg PO DAILY 05/03/19 Fluticasone Prop 0.05% Nasal [Flonase -] 1 - 2 spray NS DAILY 05/03/19 Loratadine [Allergy Relief] 10 mg PO DAILY PRN 05/03/19 Zolpidem Tartrate [Ambien] 10 mg PO HS 05/03/19 Family Medical History Family Hx Respiratory Disorders: Grandmother (maternal) (copd) Review of Systems - Review of Systems Constitutional: reports: Chills, Fever Eyes: reports: No Symptoms HENT: reports: Ear Pain (right), Hearing Loss (right), Nasal Congestion. denies : Throat Pain, Toothache Respiratory: reports: Cough Gastrointestinal: reports: No Symptoms, Diarrhea (resolving) Genitourinary: reports: No Symptoms Physical Exam Vital Signs: Vital Signs Temperature 97.9 F 05/04/19 16:08 Pulse Rate 79 05/04/19 16:08 Respiratory Rate 18 05/04/19 17:00 Blood Pressure 113/69 05/04/19 16:08 O2 Sat by Pulse Oximetry (%) 100 05/04/19 17:00 Constitutional: Yes: No Distress Eyes: Yes: Conjunctiva Clear HENT: Yes: Atraumatic, Normocephalic, Rhinnorhea. No: Thrush Neck: Yes: Supple, Trachea Midline Cardiovascular: Yes: Regular Rate and Rhythm Respiratory: Yes: CTA Bilaterally, Cough Gastrointestinal: Yes: Normal Bowel Sounds, Soft Extremities: Yes: WNL Psychiatric: Yes: Alert, Oriented Labs: CBC, BMP 05/04/19 05:35 05/04/19 05:35 Microbiology 05/03/19 13:20 Blood - Peripheral Venous Blood Culture - Preliminary NO GROWTH OBTAINED AFTER 24 HOURS, INCUBATION TO CONTINUE FOR 4 DAYS. 05/03/19 13:20 Blood - Peripheral Venous Blood Culture - Preliminary NO GROWTH OBTAINED AFTER 24 HOURS, INCUBATION TO CONTINUE FOR 4 DAYS. Imaging - Results Chest X-ray: Report Reviewed, Image Reviewed Cat Scan: Report Reviewed Problem List - Problems (1) Sinusitis Code(s): J32.9 - CHRONIC SINUSITIS, UNSPECIFIED Qualifiers: Sinusitis location: unspecified location Chronicity: acute Recurrence: non-recurrent Qualified Code(s): J01.90 - Acute sinusitis, unspecified (2) Flu-like symptoms Code(s): R68.89 - OTHER GENERAL SYMPTOMS AND SIGNS (3) Human immunodeficiency virus (HIV) disease Code(s): B20 - HUMAN IMMUNODEFICIENCY VIRUS [HIV] DISEASE Assessment/Plan given her baby has influenza B - would isolate patient and treat with tamiflu ( hiv positive) with flulike symptoms would switch ceftriaxone to ceftin in am and treat for 10 days for sinusitis continue HIV meds vaccinate with flu vaccine prior to discharge
[2019-05-04] MEDS: OSELTAMIVIR PHOSPHATE 75 MG CAPSULE PO SCH (21:59)
[2019-05-04] MEDS: DOLUTEGRAVIR SODIUM 50 MG TABLET (NON-FORMULARY) PO SCH (22:01)
[2019-05-04] MEDS ORDERED: ZOLPIDEM TARTRATE 5 MG TABLET PO PRN (22:16)
[2019-05-04] MEDS ORDERED: guaiFENesin 200 MG/10 ML 10 ML UNIT-DOSE CUPS PO PRN (22:17)
[2019-05-05] MEDS: ENOXAPARIN NA (PORCINE) 40 MG/0.4 ML DISP.SYRIN SQ SCH ×2 (07:57→11:19)
[2019-05-05 09:02] LABS: BASO % 0.4 % (0-2.0); EOS % 1.8 % (0-4.5); HEMATOCRIT 37.1 % (32.4-45.2); HEMOGLOBIN 12.5 GM/dL (10.7-15.3); LYMPH % 33.1 % (8-40); MCH 28.7 pg (25.7-33.7); MCHC 33.7 g/dl (32.0-36.0); MEAN CELL VOLUME 85.3 fl (80-96); MEAN PLT VOLUME 8.4 fl (7.5-11.1); MONO % 7.6 % (3.8-10.2); NEUT % 57.1 % (42.8-82.8); PLATELET COUNT 201 K/MM3 (134-434); RBC 4.35 M/mm3 (3.60-5.2); RDW 14.8 % (11.6-15.6); WHITE BLOOD COUNT 3.7 K/mm3 (4.0-10.0)
[2019-05-05 09:27] LABS: ALBUMIN 3.3 g/dl (3.4-5.0); BILIRUBIN,TOTAL 0.2 mg/dL (0.2-1); BLOOD UREA NITROGEN 6.7 mg/dL (7-18); CALCIUM 8.6 mg/dL (8.5-10.1); CREATININE 0.7 mg/dL (0.55-1.3); MAGNESIUM 2.2 mg/dL (1.8-2.4); TOT PROT 7.4 g/dl (6.4-8.2)
[2019-05-05] MEDS ORDERED: PT OWN MED DRAWER 7, Y5N ONE (11:15)
[2019-05-05] MEDS ORDERED: DEXTROSE 5%-WATER 100 ML IVPB ONE (11:15)
[2019-05-05] MEDS: DOLUTEGRAVIR SODIUM 50 MG TABLET (NON-FORMULARY) PO SCH (11:18)
[2019-05-05] MEDS: CEFTRIAXONE 2 GM in DEXTROSE 5%-WATER 100 ML IVPB SCH (11:18)
[2019-05-05] MEDS: OSELTAMIVIR PHOSPHATE 75 MG CAPSULE PO SCH (11:18)
--- NOTE | 2019-05-05 12:01 | DS ---
Physical Exam: SUBJECTIVE: Patient seen and examined at the bedside. in no acute distress. wants to go home. agrees to outpatient follow up. OBJECTIVE: Patient is a 33 year old F with a past medical history of congenital HIV(on symtuza [id number] tablets, Tivicay 50mg BID), chronic sinusitis, PE (non- compliant with AC since she had a child 10 mths ago-diagnosed with PE on 2010 and has been on Lovenox since then, but stopped in august 2018), and anemia ( requiring Fe and blood transfusions in past). patient reports that on Friday she got out of the shower and fell with LOC loss for apx 10 minutes. She comes to the ED with worsening Rt sided ear pain associated with fullness in her sinuses and a fever of 101F at home. imaging: CTA 05/05/2019: no PE seen. Vital Signs Period Temp Pulse Resp BP Sys/Meraz Pulse Ox Last 24 Hr 97.8 F-98.7 F 72-80 16-20 107-124/59-80 100-100 PHYSICAL EXAM GENERAL: The patient is awake, alert, and fully oriented, in no acute distress. HEAD: Normal with no signs of trauma. EYES: PERRL, extraocular movements intact, sclera anicteric, conjunctiva clear. No ptosis. ENT: Ears normal, nares patent, oropharynx clear without exudates, moist mucous membranes. NECK: Trachea midline, full range of motion, supple. LUNGS: Breath sounds equal, clear to auscultation bilaterally, no wheezes, no crackles, no accessory muscle use. HEART: Regular rate and rhythm, S1, S2 without murmur, rub or gallop. ABDOMEN: Soft, nontender, nondistended, normoactive bowel sounds, no guarding, no rebound, no hepatosplenomegaly, no masses. EXTREMITIES: no edema. NEUROLOGICAL: Normal speech, gait not observed. PSYCH: Normal mood, normal affect. SKIN: Warm, dry, normal turgor, no rashes or lesions noted LABS Laboratory Results - last 24 hr 05/04/19 05/04/19 05/05/19 11:55 17:00 08:05 WBC 3.7 L RBC 4.35 Hgb 12.5 Hct 37.1 MCV 85.3 MCH 28.7 MCHC 33.7 RDW 14.8 Plt Count 201 D MPV 8.4 Absolute Neuts (auto) 2.1 Neutrophils % 57.1 Lymphocytes % 33.1 D Monocytes % 7.6 Eosinophils % 1.8 D Basophils % 0.4 Nucleated RBC % 0 D-Dimer 594 H Sodium Potassium Chloride Carbon Dioxide Anion Gap BUN Creatinine Est GFR (CKD-EPI)AfAm Est GFR (CKD-EPI)NonAf Random Glucose Calcium Magnesium Total Bilirubin AST ALT Alkaline Phosphatase Troponin I < 0.02 Total Protein Albumin 05/05/19 08:05 WBC RBC Hgb Hct MCV MCH MCHC RDW Plt Count MPV Absolute Neuts (auto) Neutrophils % Lymphocytes % Monocytes % Eosinophils % Basophils % Nucleated RBC % D-Dimer Sodium 140 Potassium 4.0 Chloride 110 H Carbon Dioxide 24 Anion Gap 6 L BUN 6.7 L Creatinine 0.7 Est GFR (CKD-EPI)AfAm 131.02 Est GFR (CKD-EPI)NonAf 113.04 Random Glucose 88 Calcium 8.6 Magnesium 2.2 Total Bilirubin 0.2 AST 30 ALT 16 Alkaline Phosphatase 90 Troponin I Total Protein 7.4 Albumin 3.3 L HOSPITAL COURSE: Date of Admission:05/03/19 Date of Discharge: 05/05/19 Minutes to complete discharge: 45 Discharge Summary Problems reviewed: Yes Reason For Visit: MASTOIDITIS Current Active Problems Flu-like symptoms (Acute) Mastoiditis (Acute) Otitis media (Acute) Sinusitis (Acute) Syncope (Acute) Syncope (Acute) AIDS (acquired immunodeficiency syndrome), CD4 <=200 (Chronic) Human immunodeficiency virus (HIV) disease (Chronic) Condition: Stable - Instructions Diet, Activity, Other Instructions: Mrs Rose: You will be discharged today with Tamiflu for 4 more days for Flu prevention as well as Ceftin 500mg twice per day for 10 days for sinus infection: Here are your discharge instructions: Please follow up with your PCP within 3-5 days on discharge Take Ceftin 500mg TWICE per day for 10 more days Take Tamiflu for another 4 days (twice per day) Your CTA was negative for pulmonary embolism, but please follow up with your primary care doctor. You will receive a flu shot before you leave today. Thank you for allowing us to care for you. Referrals: [facility] [Primary Care Provider] - Disposition: HOME - Home Medications Comprehensive Discharge Medication List: Ambulatory Orders Albuterol 0.083% Nebulizer Opal [Ventolin 0.083% Nebulizer Soln -] 1 neb NEB QID PRN 05/03/19 Darunavir/Cob/Emtri/Tenof Alaf [Symtuza [id number] mg Tab] 1 each PO DAILY 05/03/19 Dolutegravir Sodium [Tivicay] 50 mg PO DAILY 05/03/19 Fluticasone Prop 0.05% Nasal [Flonase -] 1 - 2 spray NS DAILY 05/03/19 Loratadine [Allergy Relief] 10 mg PO DAILY PRN 05/03/19 Zolpidem Tartrate [Ambien] 10 mg PO HS 05/03/19 Cefuroxime Axetil [Ceftin -] 500 mg PO BID #20 tablet 05/05/19 Dolutegravir Sodium [Tivicay] 50 mg PO BID tablet 05/05/19 Oseltamivir Phosphate [Tamiflu -] 75 mg PO BID #8 capsule 05/05/19 Problem List - Problems (1) Syncope Assessment/Plan: likely secondary to acute infection, ear infection PT ordered on antibiotic coverage Code(s): R55 - SYNCOPE AND COLLAPSE (2) Mastoiditis Assessment/Plan: seen by ENT who advised outpatient follow up Code(s): H70.90 - UNSPECIFIED MASTOIDITIS, UNSPECIFIED EAR Qualifiers: Laterality: right Qualified Code(s): H70.91 - Unspecified mastoiditis, right ear (3) Otitis media Assessment/Plan: CT sinuses- rt mastoid fluid accumulation as well as paraspinal dx. Moderate b/ l ethmoid, maxillary, sphenoid sinus opacification consistent with sinusitis. on Ceftriaxone 2g, Doxycycline 100 PO BID flu negative Code(s): H66.90 - OTITIS MEDIA, UNSPECIFIED, UNSPECIFIED EAR Qualifiers: Otitis media type: unspecified Chronicity: acute Qualified Code(s): H66.90 - Otitis media, unspecified, unspecified ear (4) Human immunodeficiency virus (HIV) disease Assessment/Plan: congenital continue home medications Code(s): B20 - HUMAN IMMUNODEFICIENCY VIRUS [HIV] DISEASE (5) History of pulmonary embolism Assessment/Plan: history of PE, diagosed 2010, stopped anticoagulation 2018. cta 05/05/19 negative for PE Code(s): Z86.711 - PERSONAL HISTORY OF PULMONARY EMBOLISM This patient is new to me today: No Emergency Visit: Yes ED Registration Date: 05/03/19 Care time: The patient presented to the Emergency Department on the above date and was hospitalized for further evaluation of their emergent condition. Critical Care patient: No - Discharge Referral Referred to [facility] No
[2019-05-05 12:13] VITALS: BP 117/71; PULSE 75; TEMP 98
[2019-05-05] MEDS ORDERED: FLU VACCINE QUAD 60 MCG/0.5 ML (MDV 19-20) IM ONE (12:15)
--- NOTE | 2019-05-05 12:25 | PN ---
Progress Note, Physician History of Present Illness: pulmonary alert,comfortable,-resp distress,+ nausea - Current Medication List Current Medications: Active Medications Acetaminophen (Tylenol Oral Solution -) 650 mg PO Q6H PRN PRN Reason: PAIN Last Admin: 05/04/19 11:15 Dose: 650 mg Albuterol/Ipratropium (Duoneb -) 1 amp NEB Q4H PRN PRN Reason: SHORTNESS OF BREATH Last Admin: 05/05/19 11:28 Dose: 1 amp Cefuroxime Axetil (Ceftin -) 500 mg PO BID [facility] Enoxaparin Sodium (Lovenox -) 40 mg SQ DAILY WON Last Admin: 05/05/19 11:19 Dose: 40 mg Guaifenesin (Robitussin -) 10 ml PO Q6H PRN PRN Reason: COUGH Last Admin: 05/04/19 22:30 Dose: 10 ml Non-Formulary Medication (Darunavir/Cob/Emtri/Tenof Alaf [Symtuza 232-133-125- 10 Mg Tab]) 1 each PO DAILY [facility] Oseltamivir Phosphate (Tamiflu -) 75 mg PO BID [facility] Stop: 05/09/19 21:59 Last Admin: 05/05/19 11:18 Dose: 75 mg Zolpidem Tartrate (Ambien -) 5 mg PO HS PRN PRN Reason: INSOMNIA Last Admin: 05/04/19 22:30 Dose: 5 mg - Objective Vital Signs: Vital Signs Temperature 98.0 F 05/05/19 10:00 Pulse Rate 75 05/05/19 10:00 Respiratory Rate 17 05/05/19 10:00 Blood Pressure 117/71 05/05/19 10:00 O2 Sat by Pulse Oximetry (%) 100 05/05/19 03:41 Constitutional: Yes: Well Nourished, Calm Eyes: Yes: WNL HENT: Yes: WNL Neck: Yes: WNL Cardiovascular: Yes: Regular Rate and Rhythm Respiratory: Yes: CTA Bilaterally Gastrointestinal: Yes: Normal Bowel Sounds, Soft Extremities: Yes: WNL Edema: No Labs: CBC, BMP 05/05/19 08:05 05/05/19 08:05 - ....Imaging Cat Scan: Report Reviewed, Image Reviewed (-PE,-MASSES) Problem List - Problems (1) Flu-like symptoms Code(s): R68.89 - OTHER GENERAL SYMPTOMS AND SIGNS (2) Sinusitis Code(s): J32.9 - CHRONIC SINUSITIS, UNSPECIFIED Qualifiers: Sinusitis location: unspecified location Chronicity: acute Recurrence: non-recurrent Qualified Code(s): J01.90 - Acute sinusitis, unspecified (3) Human immunodeficiency virus (HIV) disease Code(s): B20 - HUMAN IMMUNODEFICIENCY VIRUS [HIV] DISEASE (4) Asthma, mild intermittent Code(s): J45.20 - MILD INTERMITTENT ASTHMA, UNCOMPLICATED (5) History of pulmonary embolism Code(s): Z86.711 - PERSONAL HISTORY OF PULMONARY EMBOLISM Assessment/Plan IMP DYSPNEA + H/O ASTHMA,PE , IMPROVED SINUSITIS SYNCOPE H/O PE UNPROVOKED HIV H/O CHEST MASS S/P BX AT [facility] BX - MALIGNANCY,LIKELY THYMUS ANEMIA ASTHMA NOT IN ACUTE EXACERBATION PLAN ABX PER ID INHALED BRONCHODILATORS PFTS OUTPATIENT DR MADDOX Problem List - Problems (1) Flu-like symptoms Code(s): R68.89 - OTHER GENERAL SYMPTOMS AND SIGNS (2) Sinusitis Code(s): J32.9 - CHRONIC SINUSITIS, UNSPECIFIED Qualifiers: Sinusitis location: unspecified location Chronicity: acute Recurrence: non-recurrent Qualified Code(s): J01.90 - Acute sinusitis, unspecified (3) Human immunodeficiency virus (HIV) disease Code(s): B20 - HUMAN IMMUNODEFICIENCY VIRUS [HIV] DISEASE (4) Asthma, mild intermittent Code(s): J45.20 - MILD INTERMITTENT ASTHMA, UNCOMPLICATED (5) History of pulmonary embolism Code(s): Z86.711 - PERSONAL HISTORY OF PULMONARY EMBOLISM
--- NOTE | 2019-05-05 16:22 | PN ---
HC Provider Note Provider Note: 05/05/19, 4:15p - called pt for f/u. States she was discharged from the hospital today. Is feeling a little better, but son now has influenza b. Pt states she will f/u here next week. States she will need a hearing test b/c still has some hearing loss. -needs f/u on lovenox - was to f/u with hematology regarding continuing therapy due to h/o PE. F/u next visit
[2019-05-05] MEDS ORDERED: CEFUROXIME AXETIL 500 MG TABLET PO SCH (22:00)
--- NOTE | 2019-05-10 07:16 | ECHO ---
Name: RAYSA FINLEY Exam:Adult Echocardiogram Study Date: 05/05/2019 09:59 AM Age: 33 yrs Reason For Study: Dyspnea, Syncope H/O Pulmonary Embolism Height: 65 in Weight: 189 lb BSA: 1.9 m2 MMode/2D Measurements & Calculations IVSd: 0.82 cm Ao root diam: 3.0 cm LVIDd: 4.5 cm LA dimension: 2.9 cm LVIDs: 3.0 cm ACS: 1.9 cm LVPWd: 0.79 cm IVSs: 1.2 cm LVPWs: 1.1 cm EDV(Teich): 92.0 ml ESV(Teich): 33.6 ml Doppler Measurements & Calculations MV E max ana: 58.0 cm/sec Ao V2 max: 100.8 cm/sec MV A max ana: 55.0 cm/sec Ao max P.1 mmHg MV E/A: 1.1 Med Peak E' Ana: 9.1 cm/sec Med E/e': 6.4 Lat Peak E' Ana: 13.3 cm/sec Lat E/e': 4.4 Procedure A two-dimensional transthoracic echocardiogram with color flow and Doppler was performed. The study w as technically difficult with many images being suboptimal in quality. Left Ventricle The left ventricular size, thickness and function are normal. The left ventricle is not well visualiz ed. The left ventricular ejection fraction is normal. Regional wall motion abnormalities cannot be excluded d ue to limited visualization. Right Ventricle The right ventricle is not well visualized. Atria Normal left and right atrial size and function. Mitral Valve The mitral valve is not well visualized. There is no mitral valve stenosis. There is trace to mild mi tral regurgitation. Tricuspid Valve The tricuspid valve is not well visualized. There is no tricuspid stenosis. There was insufficient TR detected to calculate RV systolic pressure. Aortic Valve The aortic valve is not well visualized. No hemodynamically significant valvular aortic stenosis. No aortic regurgitation is present. Pulmonic Valve The pulmonic valve is not well visualized. Great Vessels The aortic root is normal size. Pericardium/Pleura There is no pericardial effusion. Interpretation Summary The study was technically difficult with many images being suboptimal in quality. The left ventricular size, thickness and function are normal The left ventricular ejection fraction is normal. The aortic valve is not well visualized. The left ventricle is not well visualized. Regional wall motion abnormalities cannot be excluded due to limited visualization. The right ventricle is not well visualized. There is trace to mild mitral regurgitation. There was insufficient TR detected to calculate RV systolic pressure. MD Aravind Guzman 05/05/2019 03:34 PM
== END 2019-05-05 14:50 | disposition home or self-care (01) | DRG 153 ==
LOC: JER 12:12 → JERBED 17:43 → J6S 05-04 15:49
PROVIDERS: ATTEND Nurse Practitioner Family
DX: H66.90 Otitis media, unspecified, unspecified ear (principal); Z21 Asymptomatic human immunodeficiency virus [HIV] infection status; J45.20 Mild intermittent asthma, uncomplicated; K21.9 Gastro-esophageal reflux disease without esophagitis; Z98.84 Bariatric surgery status; J32.9 Chronic sinusitis, unspecified; D64.9 Anemia, unspecified; R55 Syncope and collapse; R68.89 Other general symptoms and signs; E66.9 Obesity, unspecified; Z68.37 Body mass index [BMI] 37.0-37.9, adult; Z91.14 Patient's other noncompliance with medication regimen; Z86.711 Personal history of pulmonary embolism
CPT/HCPCS: 36415; 70450-TC; 70480-TC; 71045-TC-FY; 71275-TC; 80053; 81003; 83605; 83735; 84100; 84484; 84703; 85025; 85379; 87040; 87804; 93005; 93010; 93306-TC; 94640; 99285-25; G0008; G0463-25; J0131; J7030; Q2036

== ENCOUNTER 2020-01-20 04:26 | Day surgery (SDC) | payer OTHER ==
[2020-01-19 10:30] VITALS: BMI 38.9
[2020-01-20] MEDS ORDERED: LIDOCAINE HCL 1%, 10 MG/ML (20ML VIAL) ONE (07:11)
[2020-01-20] MEDS ORDERED: MIDAZOLAM HCL 2 MG/2 ML SINGLE DOSE VIAL ONE (08:06)
[2020-01-20] MEDS ORDERED: LIDOCAINE HCL/PF 2% SDV 5ML VIAL ONE ×2 (08:07)
[2020-01-20] MEDS ORDERED: PROPOFOL 20 ML ONE ×2 (08:07)
[2020-01-20] MEDS ORDERED: SUCCINYLCHOLINE CHLORIDE 200 MG/10 ML SYRINGE ONE (08:08)
--- NOTE | 2020-01-20 08:09 | HP ---
Admitting History and Physical - Admission Chief Complaint: Pt here for muscle biopsy . Rule out polymyositis History Source: Patient Limitations to Obtaining History: No Limitations - Past Medical History Pulmonary: Yes: Asthma, Pulmonary Embolus. No: COPD Gastrointestinal: Yes: Hiatal Hernia ...LMP: 01/03/20 ...: (implant left arm) Heme/Onc: Yes: Anemia Infectious Disease: Yes: HIV - Past Surgical History Past Surgical History: Yes: Cholecystectomy - Smoking History Smoking history: Never smoked Have you smoked in the past 12 months: No Aproximately how many cigarettes per day: 0 - Alcohol/Substance Use Hx Alcohol Use: No (SOCIAL) - Social History ADL: Independent History of Recent Travel: No Home Medications - Allergies Allergies/Adverse Reactions: Allergies Allergy/AdvReac Type Severity Reaction Status Date / Time ciprofloxacin [From Cipro] Allergy Severe Verified 01/20/20 07:06 moxifloxacin HCl Allergy Severe Verified 01/20/20 07:06 [From Avelox] levofloxacin [From Levaquin] Allergy Intermediate Hives Verified 01/20/20 07:06 tramadol Allergy Intermediate Itching Verified 01/20/20 07:06 amoxicillin Allergy Mild Itching Verified 01/20/20 07:06 heparin Allergy Mild Itching Verified 01/20/20 07:06 vancomycin Allergy Unknown Swelling Verified 01/20/20 07:06 raisin Allergy Intermediate Itching Uncoded 01/20/20 07:06 - Home Medications Home Medications: Ambulatory Orders Etonogestrel [Nexplanon] 68 mg SQ ONCE 11/19/19 Ondansetron [Zofran -] 1 tab PO BID PRN #20 tablet 11/22/19 Famotidine [Pepcid -] 40 mg PO HS 11/26/19 Pantoprazole Sodium [Protonix -] 40 mg PO BID 11/26/19 Ergocalciferol [Vitamin D2] 50,000 unit PO MOFR #8 capsule 12/29/19 Gabapentin 600 mg PO HS #30 tablet 12/29/19 Darunavir/Cob/Emtri/Tenof Alaf [Symtuza [id number] mg Tab] 1 tab PO DAILY 01/17/20 Dolutegravir Sodium [Tivicay] 50 mg PO DAILY 01/17/20 Prednisone 20 mg PO DAILY 01/17/20 Review of Systems - Review of Systems Constitutional: reports: No Symptoms Eyes: reports: No Symptoms HENT: reports: No Symptoms Neck: reports: No Symptoms Cardiovascular: reports: No Symptoms Respiratory: reports: No Symptoms Gastrointestinal: reports: No Symptoms Genitourinary: reports: No Symptoms Breasts: reports: No Symptoms Reported Musculoskeletal: reports: No Symptoms Integumentary: reports: No Symptoms Neurological: reports: No Symptoms Endocrine: reports: No Symptoms Hematology/Lymphatic: reports: No Symptoms Psychiatric: reports: No Symptoms Physical Examination Vital Signs: Vital Signs Temperature 98.6 F 01/20/20 07:01 Pulse Rate 77 01/20/20 07:01 Respiratory Rate 16 01/20/20 07:01 Blood Pressure 123/74 01/20/20 07:01 O2 Sat by Pulse Oximetry (%) 98 01/20/20 07:01 Constitutional: Yes: Well Nourished, No Distress, Calm Eyes: Yes: WNL, Conjunctiva Clear, EOM Intact HENT: Yes: WNL, Atraumatic, Normocephalic Neck: Yes: WNL, Supple, Trachea Midline Cardiovascular: Yes: WNL, Regular Rate and Rhythm Respiratory: Yes: WNL, Regular, CTA Bilaterally Gastrointestinal: Yes: WNL, Normal Bowel Sounds Musculoskeletal: Yes: WNL Extremities: Yes: WNL Edema: No Integumentary: Yes: WNL Neurological: Yes: WNL, Alert, Oriented ...Motor Strength: WNL Psychiatric: Yes: WNL Problem List - Problems (1) Polymyositis Assessment/Plan: for right thigh muscle biopsy today Jorge Pate DO Problems reviewed: Yes Code(s): M33.20 - POLYMYOSITIS, ORGAN INVOLVEMENT UNSPECIFIED
[2020-01-20] MEDS ORDERED: LIDOCAINE HCL 1%, 10 MG/ML (20ML VIAL) NR ONE (08:25)
[2020-01-20] MEDS ORDERED: EPHEDRINE SULFATE/0.9% NACL/PF 50 MG/10 ML SYRINGE NR ONE (08:40)
--- NOTE | 2020-01-20 08:41 | OP ---
Operative Note - Note: Operative Date: 01/20/20 Pre-Operative Diagnosis: polymyositis Operation: right thigh muscle biopsy Post-Operative Diagnosis: Same as Pre-op Surgeon: Jorge Pate Anesthesia: MAC Estimated Blood Loss (mls): 5 Operative Report Dictated: Yes
[2020-01-20] MEDS ORDERED: ACETAMINOPHEN 325 MG TABLET (FP) PO PRN (08:49)
[2020-01-20] MEDS ORDERED: oxyCODONE HCL 5 MG TABLET PO PRN ×2 (08:49)
[2020-01-20] MEDS ORDERED: ONDANSETRON 4 MG/2 ML VIAL IVPUSH PRN (08:49)
[2020-01-20] MEDS ORDERED: LACTATED RINGERS SOLUTION 1,000 ML IV SCH (09:00)
[2020-01-20] MEDS ORDERED: SODIUM CHLORIDE 0.9% P/F 10 ML VIAL IJ ONE (09:25)
[2020-01-20] MEDS ORDERED: ceFAZolin SODIUM 1 GM VIAL ONE (09:25)
[2020-01-20] MEDS ORDERED: oxyCODONE HCL 5 MG TABLET ONE (09:50)
[2020-01-20 10:53] VITALS: BP 114/65; PULSE 79; TEMP 98.2
--- NOTE | 2020-02-01 09:20 | OP ---
DATE OF OPERATION: 01/20/2020 PREOPERATIVE DIAGNOSIS: Polymyositis. POSTOPERATIVE DIAGNOSIS: Polymyositis. PROCEDURE: Right thigh muscle biopsy. SURGEON: Jorge Garibay DO ANESTHESIA: Fractional. BLOOD LOSS: 5 mL. INDICATION: Patient is a 34-year-old female with upper and lower extremity weakness. She had an EMG done on the left leg, and Rheumatology wants a muscle biopsy from the right thigh. The patient came into ambulatory surgery. Patient was COVID-19 negative. Patient was consented for the procedure, understanding all risks, benefits, alternatives. Was then taken to the operating room. DESCRIPTION OF PROCEDURE: Once in the operating room, patient was laid on the operating room table in the supine manner. The area of the right thigh was prepped and draped in a sterile surgical manner. We then went ahead and injected 15 mL of lidocaine 1% over the right thigh. We then made a 4-cm incision using a 15 blade. Bovie electrocautery was then used to control hemostasis, and we were able to take that down through all the subcutaneous tissue and down to the fascial plane. Fascial plane was then opened, and the muscle was exposed. An Allis clamp was used, and the muscle was grabbed, and we were then able to use Bovie electrocautery and excise the muscle. The muscle was then sent on to Pathology. Bovie electrocautery was used to control hemostasis. The wound was well irrigated. Once well irrigated, we then used 3-0 Vicryl and subcutaneous tissue was approximated in an interrupted manner. Skin was then closed with skin glo. The area was wet and dried; 4 x 4 Tegaderms were placed. The patient tolerated this procedure with no complications. Patient transferred to PACU in stable condition. JORGE GARIBAY DO [employer] LEAD/[id number]
--- NOTE | 2020-02-01 16:52 | PATH ---
Surgical Pathology Report Patient Name: RAYSA FINLEY [facility]. Rec. #: [id number] /Age/Gender: 1985 (Age: 34) / F Account: [id number] Location: [facility] SURGICAL Taken: 01/20/2020 Received: 01/20/2020 Reported: 02/07/2020 Physicians: Jorge Pate Specimen(s) Received RIGHT THIGH MUSCLE BIOPSY Clinical History Polymyositis Final Diagnosis MUSCLE, THIGH, RIGHT, BIOPSY: SKELETAL MUSCLE SHOWING NON-SPECIFIC ABNORMALITY, OVERALL MILD TO MODERATE. SEE COMMENT. Comment: This muscle shows a constellation of abnormality including scattered atrophic fibers in non- specific distribution pattern, extremely rare necrotic and degenerating fibers, and multifocal, minimal to mild chronic inflammatory reactions outside of myophagocytotic foci. The degree of myofiber atrophy is overall mild to moderate. The detected changes are non- specifically abnormal as a whole, but remain insufficient to categorize into a single specified entity of disease such as "polymyositis", by morphology alone. Namely, infectious/post-infectious, immune-mediated, myotoxic/iatrogenic, nutritional/ endocrine/metabolic, traumatic, ischemic, and inherited causes of myocyte injury cannot be excluded on purely morphological grounds. In this muscle, features of neurogenic abnormality or vasculitis are absent. The perimysial adipose tissue might be abundant, but is normally situated. Although the clinical significance are rare cytochrome c oxidase-deficient fibers remain uncertain, it may be related to possible, HIV-antiviral with nucleoside analogues. This case was sent for consultation and work-up to Dr. Karlie Berumen from [place], [place], the diagnosis reflects her opinion. See Oliver report for additional details ([id number]). Electronically Signed Carin Sears M.D. Gross Description Received fresh labeled "right thigh muscle biopsy" are 2 red-brown portions of muscle averaging 1.0 cm in length and 0.8 cm in diameter. The specimen is divided, placed in saline moistened gauze, 10% buffered formalin and glutaraldehyde. The specimen is sent to [facility] for further studies. /01/20/2020 saudi01/20/2020
== END 2020-01-20 10:45 | disposition home or self-care (01) ==
LOC: JASU-SURG 04:26
PROVIDERS: ATTEND Surgery Vascular Surgery
PROC: 0KBQ0ZX Excision of Right Upper Leg Muscle, Open Approach, Diagnostic (ICD-10-PCS; principal; 2020-01-20 08:00)
DX: M33.20 Polymyositis, organ involvement unspecified (principal)
CPT/HCPCS: 84703; 88305-TC; 94760

== ENCOUNTER 2021-01-18 16:50 | Emergency (ER) | payer OTHER ==
[2021-01-18 16:59] VITALS: BP 116/75; PULSE 68; TEMP 98.7; BMI 30.2
[2021-01-18] MEDS ORDERED: KETOROLAC TROMETHAMINE 30 MG/1 ML VIAL IM ONE (17:03)
[2021-01-18] MEDS ORDERED: KETOROLAC TROMETHAMINE 30 MG/1 ML VIAL ONE (17:08)
== END 2021-01-18 17:30 | disposition home or self-care (01) ==
LOC: FER 16:50
PROC: 3E0233Z Introduction of Anti-inflammatory into Muscle, Percutaneous Approach (ICD-10-PCS; principal; 2021-01-18)
DX: M72.2 Plantar fascial fibromatosis (principal)
CPT/HCPCS: 99283-25

== ENCOUNTER 2021-06-02 19:05 | Emergency (ER) | payer OTHER ==
[2021-06-02 19:33] VITALS: BP 115/75; PULSE 81; TEMP 98.6; BMI 30.4
[2021-06-05 00:07] LABS: SARS-CoV-2 NAA Not Detected (Not Detected)
== END 2021-06-02 19:59 | disposition home or self-care (01) ==
LOC: SUPCPDRO 19:05 → FER 19:05
DX: Z11.52 Encounter for screening for COVID-19 (principal)
CPT/HCPCS: 99283-25; C9803; U0003; U0005